=== PATIENT | male | born 1945 | race Caucasian/White ===

== ENCOUNTER → 2017-03-20 | Outpatient (CLI) | payer OTHER, MEDICAID ==
[2016-12-15 11:53] VITALS: BP 119/74
[2017-03-20 09:02] LABS: BLOOD UREA NITROGEN 21 mg/dL (7-18); CALCIUM 8.6 mg/dL (8.5-10.1); CARBON DIOXIDE 28.7 mmol/L (21-32); CHLORIDE 108 mmol/L (98-107); CHOL/HDL RATIO 2.5 (0.0-5.0); CHOLESTEROL 161 mg/dL (0-200); CREATININE 1.11 mg/dL (0.70-1.30); FREE T4 (FREE THYROXINE) 1.06 ng/dL (0.76-1.46); GLUCOSE 110 mg/dL (65-99); HDL CHOLESTEROL 64 mg/dL (40-60); SODIUM 145 mmol/L (136-145); TRIGLYCERIDES 78 mg/dL (0-150); TSH (3RD GENERATION) 7.211 uIU/mL (0.358-3.74); eGFR BLACK RACES > 60 (>60); eGFR NON BLACK RACES > 60 (>60)
[2017-03-20 09:10] LABS: BASOPHILS % (AUTO) 0.6 % (0.2-1.0); EOSINOPHILS # (AUTO) 0.1 x10^3/uL (0.0-0.2); EOSINOPHILS % (AUTO) 1.8 % (0.9-2.9); HEMATOCRIT 40.8 % (42.0-54.0); HEMOGLOBIN 13.5 g/dL (13.5-18.0); LYMPHOCYTES # (AUTO) 1.7 X10^3/uL (1.3-2.9); LYMPHOCYTES % (AUTO) 31.3 % (21.0-51.0); MEAN CORPUSCULAR HEMOGLOBIN 30.1 pg (27.0-34.0); MEAN CORPUSCULAR HGB CONC 33.2 g/dL (33.0-35.0); MEAN CORPUSCULAR VOLUME 90.6 fL (80.0-100.0); MEAN PLATELET VOLUME 7.5 fL (7.4-11.0); MONOCYTES # (AUTO) 0.6 x10^3/uL (0.3-0.8); MONOCYTES % (AUTO) 10.7 % (0.0-13.0); NEUTROPHILS # (AUTO) 2.9 x10^3/uL (2.2-4.8); NEUTROPHILS % (AUTO) 55.6 % (42.0-75.0); PLATELET COUNT 207 X10^3/uL (150.0-450.0); RED BLOOD COUNT 4.51 X10^6/uL (4.7-6.0); RED CELL DISTRIBUTION WIDTH 14.1 % (11.6-16.5); WHITE BLOOD COUNT 5.3 X10^3/uL (3.6-10.0)
[2017-03-20 14:33] LABS: ALBUMIN 3.8 g/dL (3.4-5.0); BILIRUBIN,DIRECT 0.12 mg/dL (0-0.2); TOTAL PROTEIN 7.2 g/dL (6.4-8.2)
== END ==
LOC: LAB 08:08
PROVIDERS: ATTEND Internal Medicine Clinical Cardiac Electrophysiology
DX: I42.8 Other cardiomyopathies (principal); Z51.81 Encounter for therapeutic drug level monitoring; I10 Essential (primary) hypertension; E78.2 Mixed hyperlipidemia
CPT/HCPCS: 36415; 80048; 80061; 80076; 84439; 84443; 85025

== ENCOUNTER 2017-11-04 13:52 | Emergency (ER) | payer OTHER, MEDICAID ==
[2017-11-04 14:10] VITALS: BMI 44.1
[2017-11-04] MEDS ORDERED: ZOFRAN INJ 4 MG VIAL IM ONE (14:38)
--- NOTE | 2017-11-04 14:38 | DR.DIZZY ---
HPI - Time seen Time seen: 14:35 - PCP Primary Care Physician: KIRSTIE CHAUDHARY - HPI Comment HPI Comment: HISTORY BELOW. - Complaint Chief Complaint Doctor Comments: ATAXIA, DIZZINESS AND IMBALANCE WITH NAUSEA TIMES 8 DAYS. TAKING ANTIVERT WITHOUT RELIEF. FELL FEW DAYS AGO. HURTING IN LOWER RIGHT RIB. 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 HAVE VERTIGO FOR FEW YEARS NOW. ALSO DEAF IN RIGHT EAR. Chief Complaint:: PT TO THE ER WITH HIS DAUGHTER AND HE STATES HE HAS BEEN SICK , WEAK, DIZZY, AND NAUSEATED AND HE THOUGHT THIS WOULD GET BETTER. ". Self Treatment fo Chief Complaint: ANTIVERT - Nurses Notes Reviewed Nurses Notes Review: Yes - Source History Provided: Patient, Family Member - Mode of Arrival Mode of Arrival: Wheelchair - Timing Onset of Chief Complaint: 10/28/17 Came on: Suddenly - Duration Duration: Constant Duration: Days - Location of Weakness Weakness Location: Generalized - Context Onset: At rest, With light exertion Stroke Symptoms: Ataxia, Dizziness - Severity Severity: Abnormal activity level - Modifying factors Worsens: Change in Position, Turning Head - Associated signs and symptoms Associated Signs and Symptoms: Near Syncope, Vertigo, Imbalance, Weak PMH - PMH Past Medical History: Yes Past Medical History: Anxiety, CHF, Coronary Artery Disease, Diabetes, Dyslipidemia, GERD, Hypertension, Kidney Stones Past Surgical History: Yes Surgical History: Joint Replacement, Ortho Surgery, Lithotripsy - Family History History of Family Medical Conditions: Yes Family Medical History: Diabetes Mellitus, Cancer, Heart Failure, Sudden Cardiac , Hypertension - Social History Does patient currently use any type of tobacco product: No Have you used tobacco products in the last 12 months: No Type of Tobacco Use: None Does any household member use tobacco: No Alcohol Use: None Do you use any recreational Drugs:: No Lives With: Alone Lives Where: Home - infectious screening In the last 2 months have you had wt loss of >10#?: NO Have you had fever, night sweats or hemotysis?: No Have you traveled outside the country in the last 6 months?: No Isolation: Standard ROS - Review of Systems Constitutional: Weakness. negative: Chills, Fever Eyes: negative: Eye Pain, Discharge ENTM: negative: Ear Pain, Nose Discharge, Nose Congestion, Throat Pain Respiratoy: negative: Productive Cough, Short of Breath, Wheezing, Hemoptysis Cardiovascular: Edema. negative: Chest Pain, Syncope (NEAR SYNCOPE/VERTIGO) Gastrointestinal/Abdominal: negative: Abdominal Pain, Constipation, Diarrhea, Nausea, Vomiting Genitourinary: negative: Dysuria, Hematuria Neurological: Headache, Weakness, Dizziness, Problems Walking, Other (ATAXIA, VERTIGO) Musculoskeletal: Back Pain, Rib(s) (RT RIB PAIN) Integumentary: Change in Color, Rash (STASIS DERMATITIS) Hematologic/Lymphatic: No Symptoms Reported Endocrine: No Symptoms Reported All Other Systems: Reviewed and Negative PE - Vital Signs Vitals: Temperature 97.4 F Pulse Rate [Left Brachial] 73 Pulse Rate 72 Respiratory Rate 16 Blood Pressure [Left Arm] 129/74 Blood Pressure [Right Arm] 106/55 Blood Pressure 181/103 O2 Sat by Pulse Oximetry 99 - General Limitations: No Limitations General Appearance: Alert - Head Head Exam: Normal Inspection - Eyes Eye exam: Normal Appearance Pupils: Regular, Round: Bilateral, Reactive: Bilateral Sclera/Conjunctival: Normal Inspection: Bilateral - ENT ENT Exam: Normal External Ear Exam, TM's Normal Bilaterally - Neck Neck Exam: Trachea Midline - Chest Chest Inspection: Symmetric Chest Wall Rise - Respiratory Respiratory Exam: Chest Wall Tenderness (RT RIB TENERNESS RT LOWER LATERAL ASPECT.), Respiratory Distress (ON EXERTION) Respiratory Exam: Bilateral Wheezing, Bilateral Rhonchi, Upper Rhonchi, Lower Wheezing, Lower Rhonchi - Cardiovascular Cardiovascular Exam: Regular Rate, Normal Rhythm, Normal Heart Sounds - Abdominal Exam Abdominal Exam: Normal Bowel Sounds, Soft. negative: Tenderness - Rectal Rectal Exam: Deferred - Extremeties Extremities Exam: Normal Inspection - Back Back Exam: Paraspinal Tenderness - Neurologic Neurological Exam: Alert, Oriented X3, Other (ATAXIA) Speech: Fluid Speech Cranial Nerve Exam: EOM Function (II, III, IV, ): Normal, Facial Sensation (V) : Normal, Facial Palsy (VII): Normal, Gag reflex (XI): Normal, Tongue Deviation : Normal Cerebellar Function: Ataxic Gait Upper Motor Neuron Exam: Babinski Sign: Normal - Psychiatric Psychiatric Exam: Normal Affect, Normal Mood - Skin Skin Exam: Erythema MDM - Additional Information Additional Information Obtained From: Family - Differential Diagnosis Differential Diagnosis: CVA, Dehydration, Dysrhythmia, Electrolyte disorder, Hypoglycemia, Labyrinthitis, Meniere's disease, Myocardial Infarction, Vertigo- central Course - Treatment Treatment: SEE ORDERS - Education/Counseling Education/Counseling: Patient, Family, Education Educated On: Diagnosis, Needs for Follow Up ROR - Labs Reviewed Laboratory Results Reviewed?: Yes Result Diagrams: 11/04/17 14:52 11/04/17 14:52 Laboratory: WBC 6.3 X10^3/uL (3.6-10.0) 11/04/17 14:52 RBC 4.30 X10^6/uL (4.7-6.0) L 11/04/17 14:52 Hgb 13.5 g/dL (13.5-18.0) 11/04/17 14:52 Hct 39.3 % (42.0-54.0) L 11/04/17 14:52 MCV 91.5 fL (80.0-100.0) 11/04/17 14:52 MCH 31.3 pg (27.0-34.0) 11/04/17 14:52 MCHC 34.2 g/dL (33.0-35.0) 11/04/17 14:52 RDW 13.7 % (11.6-16.5) 11/04/17 14:52 Plt Count 218 X10^3/uL (150.0-450.0) 11/04/17 14:52 MPV 7.3 fL (7.4-11.0) L 11/04/17 14:52 Neut % 66.6 % (42.0-75.0) 11/04/17 14:52 Lymph % 22.8 % (21.0-51.0) 11/04/17 14:52 [place] % 8.0 % (0.0-13.0) 11/04/17 14:52 Eos % 1.5 % (0.9-2.9) 11/04/17 14:52 Baso % 1.1 % (0.2-1.0) H 11/04/17 14:52 Neut # 4.2 x10^3/uL (2.2-4.8) 11/04/17 14:52 Lymph # 1.4 X10^3/uL (1.3-2.9) 11/04/17 14:52 [place] # 0.5 x10^3/uL (0.3-0.8) 11/04/17 14:52 Eos # 0.1 x10^3/uL (0.0-0.2) 11/04/17 14:52 Baso # 0.1 X10^3/uL (0.0-0.1) 11/04/17 14:52 Absolute Nucleated RBC 0.1 /100WBC 11/04/17 14:52 Sodium 140 mmol/L (136-145) 11/04/17 14:52 Corrected Sodium TNP 11/04/17 14:52 Potassium 4.2 mmol/L (3.5-5.1) 11/04/17 14:52 Chloride 104 mmol/L (98-107) 11/04/17 14:52 Carbon Dioxide 27.4 mmol/L (21-32) 11/04/17 14:52 BUN 21 mg/dL (7-18) H 11/04/17 14:52 Creatinine 1.37 mg/dL (0.70-1.30) H 11/04/17 14:52 Est GFR (MDRD) Af Amer > 60 (>60) 11/04/17 14:52 Est GFR (MDRD) Non-Af 54 (>60) L 11/04/17 14:52 Glucose 102 mg/dL (65-99) H 11/04/17 14:52 Calcium 9.2 mg/dL (8.5-10.1) 11/04/17 14:52 Corrected Calcium TNP 11/04/17 14:52 Total Bilirubin 0.60 mg/dL (0.2-1.0) 11/04/17 14:52 AST 18 Units/L (15-37) 11/04/17 14:52 ALT 27 Units/L (12-78) 11/04/17 14:52 Alkaline Phosphatase 60 Units/L (46-116) 11/04/17 14:52 Creatine Kinase 64 Units/L (39-308) 11/04/17 14:52 CK-MB (CK-2) 1.3 ng/mL (0-4.0) 11/04/17 14:52 CK/CKMB % Calc 2.0 % (<4) 11/04/17 14:52 Troponin I < 0.02 ng/mL (0-1.5) 11/04/17 14:52 Total Protein 7.4 g/dL (6.4-8.2) 11/04/17 14:52 Albumin 4.0 g/dL (3.4-5.0) 11/04/17 14:52 Globulin 3.4 g/dL (2.5-4.5) 11/04/17 14:52 Albumin/Globulin Ratio 1.2 Ratio (1.1-2.1) 11/04/17 14:52 - XRAY XRAY Interpreted by: Radiologist XRAY Findings: REPORT DISCUSS WITH GREGG BELTRAN. - EKG Rhythm: NSR (EKG NOTED) Block: LBBB - Diagnosis Discharge Problem: Vertigo, Dizziness Contusion of rib on left side Qualifiers: Encounter type: initial encounter Qualified Code(s): S20.212A - Contusion of left front wall of thorax, initial encounter - Discharge Plan Disposition: 01 HOME, SELF-CARE Condition: Stable Prescriptions: Ondansetron [Zofran ODT 8 mg] 8 mg PO Q8H PRN #15 tab PRN Reason: Nausea/Vomiting - Follow ups/Referrals Follow ups/Referrals: Nolberto Farrell [Primary Care Provider] - 2 days - Instructions Instructions: Vertigo, [id number], Rib Contusion, Dizziness, [id number] Additional Instructions: RETURN TO ED IF WORSE.
[2017-11-04] MEDS ORDERED: ZOFRAN INJ 4 MG VIAL ONE (14:47)
[2017-11-04 15:00] LABS: BASOPHILS # (AUTO) 0.1 X10^3/uL (0.0-0.1); BASOPHILS % (AUTO) 1.1 % (0.2-1.0); EOSINOPHILS # (AUTO) 0.1 x10^3/uL (0.0-0.2); EOSINOPHILS % (AUTO) 1.5 % (0.9-2.9); HEMATOCRIT 39.3 % (42.0-54.0); HEMOGLOBIN 13.5 g/dL (13.5-18.0); LYMPHOCYTES # (AUTO) 1.4 X10^3/uL (1.3-2.9); LYMPHOCYTES % (AUTO) 22.8 % (21.0-51.0); MEAN CORPUSCULAR HEMOGLOBIN 31.3 pg (27.0-34.0); MEAN CORPUSCULAR HGB CONC 34.2 g/dL (33.0-35.0); MEAN CORPUSCULAR VOLUME 91.5 fL (80.0-100.0); MEAN PLATELET VOLUME 7.3 fL (7.4-11.0); MONOCYTES # (AUTO) 0.5 x10^3/uL (0.3-0.8); NEUTROPHILS # (AUTO) 4.2 x10^3/uL (2.2-4.8); NEUTROPHILS % (AUTO) 66.6 % (42.0-75.0); PLATELET COUNT 218 X10^3/uL (150.0-450.0); RED CELL DISTRIBUTION WIDTH 13.7 % (11.6-16.5); WHITE BLOOD COUNT 6.3 X10^3/uL (3.6-10.0)
[2017-11-04 15:17] LABS: BLOOD UREA NITROGEN 21 mg/dL (7-18); CALCIUM 9.2 mg/dL (8.5-10.1); CARBON DIOXIDE 27.4 mmol/L (21-32); CHLORIDE 104 mmol/L (98-107); CREATININE 1.37 mg/dL (0.70-1.30); SODIUM 140 mmol/L (136-145); TROPONIN I < 0.02 ng/mL (0-1.5); eGFR BLACK RACES > 60 (>60); eGFR NON BLACK RACES 54 (>60)
[2017-11-04 15:21] LABS: ALANINE AMINOTRANSFERASE 27 Units/L (12-78); ALKALINE PHOSPHATASE 60 Units/L (46-116); ASPARTATE AMINO TRANSFERASE 18 Units/L (15-37); CREATINE KINASE 64 Units/L (39-308); CREATINE KINASE MB 1.3 ng/mL (0-4.0); TOTAL PROTEIN 7.4 g/dL (6.4-8.2)
--- NOTE | 2017-11-04 16:08 | CT ---
Indication: Mental status changes. Exam: CT head without contrast. Technique: Routine transaxial images were obtained through the brain without contrast. Comparison: 06/15/2016. Findings: The ventricles are normal. There is mild periventricular low density bilaterally. No intrac ranial hemorrhage or edema is seen. There is no extra-axial fluid collection or mass. The bones are i ntact. There is moderate calcified plaque in the intracranial vessels. The midline structures are unr emarkable. Impression: Mild atrophy and mild chronic microischemic changes scattered in the deep white matter wi th no acute intracranial abnormality. Reported By:
[2017-11-04 16:55] VITALS: BP 106/55
--- NOTE | 2017-11-04 16:56 | RAD ---
HISTORY: Right rib pain and dizziness. Study: Four views of the ribs. Comparison: Chest x-ray dated December 15, 2016. Findings: The trachea is midline. The cardiac silhouette is mildly enlarged but unchanged. Stable appearance o f a multi lead left chest cardiac pacemaker. No obvious focal consolidation, pleural effusion, or pn eumothorax.. The bony thorax appears intact. IMPRESSION: 1. No acute cardiopulmonary disease. 2. No acute osseous abnormality. Reported By:
== END 2017-11-04 17:34 | disposition home or self-care (01) ==
LOC: ER 14:04
DX: S20.212A Contusion of left front wall of thorax, initial encounter (principal); R42 Dizziness and giddiness; W19.XXXA Unspecified fall, initial encounter; Y92.9 Unspecified place or not applicable
CPT/HCPCS: 36415; 70450; 71111; 80053; 82550; 82553; 84484; 85025; 93005; 93010; 96372; 99283; 99285; J2405

== ENCOUNTER → 2018-04-10 | Outpatient (CLI) | payer OTHER, MEDICAID ==
[2018-04-10 08:11] LABS: BASOPHILS % (AUTO) 0 % (0.2-1.0); EOSINOPHILS # (AUTO) 0.2 x10^3/uL (0.0-0.2); EOSINOPHILS % (AUTO) 2.9 % (0.9-2.9); HEMATOCRIT 39.2 % (42.0-54.0); HEMOGLOBIN 13.4 g/dL (13.5-18.0); LYMPHOCYTES # (AUTO) 2.1 X10^3/uL (1.3-2.9); LYMPHOCYTES % (AUTO) 35.3 % (21.0-51.0); MEAN CORPUSCULAR HEMOGLOBIN 31.7 pg (27.0-34.0); MEAN CORPUSCULAR HGB CONC 34.2 g/dL (33.0-35.0); MEAN CORPUSCULAR VOLUME 92.8 fL (80.0-100.0); MEAN PLATELET VOLUME 7.2 fL (7.4-11.0); MONOCYTES # (AUTO) 1.5 x10^3/uL (0.3-0.8); NEUTROPHILS # (AUTO) 2.2 x10^3/uL (2.2-4.8); NEUTROPHILS % (AUTO) 36.8 % (42.0-75.0); PLATELET COUNT 207 X10^3/uL (150.0-450.0); RED BLOOD COUNT 4.22 X10^6/uL (4.7-6.0); RED CELL DISTRIBUTION WIDTH 13.5 % (11.6-16.5); WHITE BLOOD COUNT 5.9 X10^3/uL (3.6-10.0)
[2018-04-10 08:19] LABS: PLATELET MORPHOLOGY COMMENT NORMAL (NORMAL)
[2018-04-10 08:33] LABS: ALANINE AMINOTRANSFERASE 22 Units/L (12-78); ALBUMIN 3.7 g/dL (3.4-5.0); ALKALINE PHOSPHATASE 48 Units/L (46-116); ASPARTATE AMINO TRANSFERASE 12 Units/L (15-37); BLOOD UREA NITROGEN 24 mg/dL (7-18); CARBON DIOXIDE 28.5 mmol/L (21-32); CHLORIDE 106 mmol/L (98-107); CHOL/HDL RATIO 2.4 (0.0-5.0); CHOLESTEROL 146 mg/dL (0-200); COR NA(FOR HYPERGLY) 142 mmol/L (136-145); CREATININE 1.44 mg/dL (0.70-1.30); FREE T4 (FREE THYROXINE) 0.89 ng/dL (0.76-1.46); HDL CHOLESTEROL 60 mg/dL (40-60); SODIUM 142 mmol/L (136-145); TOTAL PROTEIN 7.2 g/dL (6.4-8.2); TRIGLYCERIDES 78 mg/dL (0-150); TSH (3RD GENERATION) 6.784 uIU/mL (0.358-3.74); eGFR BLACK RACES > 60 (>60); eGFR NON BLACK RACES 51 (>60)
== END ==
LOC: LAB 07:44
PROVIDERS: ATTEND Internal Medicine
DX: I42.9 Cardiomyopathy, unspecified (principal); Z51.81 Encounter for therapeutic drug level monitoring
CPT/HCPCS: 36415; 80053; 80061; 84439; 84443; 85025

== ENCOUNTER 2019-07-13 14:55 | Inpatient (IN) ==
[2019-07-13] MEDS ORDERED: ZOFRAN INJ 4 MG VIAL IVP PRN (15:15)
[2019-07-13] MEDS ORDERED: PHARMACY CONSULT - VANCOMYCIN XX SCH (16:00)
[2019-07-13] MEDS ORDERED: PHARMACY CONSULT - DOSE _____ XX SCH (16:00)
[2019-07-13 16:57] LABS: BASOPHILS % (AUTO) 0.3 % (0.2-1.0); HEMATOCRIT 33.3 % (42.0-54.0); HEMOGLOBIN 11.3 g/dL (13.5-18.0); LYMPHOCYTES # (AUTO) 0.9 X10^3/uL (1.3-2.9); LYMPHOCYTES % (AUTO) 7.4 % (21.0-51.0); MEAN CORPUSCULAR HEMOGLOBIN 31.8 pg (27.0-34.0); MEAN CORPUSCULAR VOLUME 93.3 fL (80.0-100.0); MEAN PLATELET VOLUME 6.4 fL (7.4-11.0); MONOCYTES # (AUTO) 0.8 x10^3/uL (0.3-0.8); MONOCYTES % (AUTO) 6.7 % (0.0-13.0); NEUTROPHILS # (AUTO) 10.8 x10^3/uL (2.2-4.8); NEUTROPHILS % (AUTO) 85.6 % (42.0-75.0); PLATELET COUNT 194 X10^3/uL (150.0-450.0); RED BLOOD COUNT 3.56 X10^6/uL (4.7-6.0); RED CELL DISTRIBUTION WIDTH 13.9 % (11.6-16.5); WHITE BLOOD COUNT 12.6 X10^3/uL (3.6-10.0)
[2019-07-13 17:10] LABS: ALANINE AMINOTRANSFERASE 11 Units/L (12-78); ALBUMIN 3.2 g/dL (3.4-5.0); ALKALINE PHOSPHATASE 43 Units/L (46-116); ASPARTATE AMINO TRANSFERASE 13 Units/L (15-37); BLOOD UREA NITROGEN 35 mg/dL (7-18); CALCIUM 8.7 mg/dL (8.5-10.1); CARBON DIOXIDE 28.6 mmol/L (21-32); CHLORIDE 102 mmol/L (98-107); COR CA(FOR HYPOALB) 9.3 mg/dL (8.5-10.1); CREATININE 2.05 mg/dL (0.70-1.30); SODIUM 138 mmol/L (136-145); eGFR NON BLACK RACES 34 (>60)
--- NOTE | 2019-07-13 17:24 | VAS ---
Exam: Left lower extremity venous ultrasound History: 74-year-old male left leg swelling Comparison: None Findings: Ultrasound evaluation of the deep venous system of the left leg was performed from the level of the inguinal ligament down to the calf. Deep system is widely patent with good flow and compressibility seen along its course. No evidence of intraluminal thrombus. Impression: No deep vein thrombosis is identified in the left lower extremity Reported By:
[2019-07-13] MEDS ORDERED: ZOFRAN INJ 4 MG VIAL ONE (18:06)
[2019-07-13] MEDS: ZOFRAN INJ 4 MG VIAL IVP PRN (18:10)
--- NOTE | 2019-07-13 18:16 | RAD ---
HISTORY: Shortness of breath Study: Two views of the chest Comparison: November 04, 2017 Findings: The trachea is midline. The cardiac silhouette is enlarged. The lungs are clear without focal infiltrate or effusion. A left-sided cardiac pacemaker is demonstrated. Elevation of the left hemidiaphragm is again noted similar to prior exam. IMPRESSION: 1. Cardiomegaly. Reported By:
[2019-07-13] MEDS ORDERED: NS 1000 ML 1,000 ML ONE (21:31)
[2019-07-13] MEDS: ZOSYN VIAL 3.375 GRAMS 3.375 G in NS 100 ML IV + SPIKE MINIBAG* 100 ML IV SCH (21:55)
[2019-07-13 23:15] VITALS: BMI 45.6
[2019-07-14] MEDS ORDERED: NS 250 ML IV 250 ML ONE ×2 (03:36→07:49)
[2019-07-14] MEDS ORDERED: VANCOMYCIN HCL 1 GM VIAL ONE ×2 (03:36→07:50)
[2019-07-14] MEDS ORDERED: VANCOMYCIN HCL 500 MG VIAL ONE ×2 (03:36→07:50)
[2019-07-14] MEDS: VANCOMYCIN HCL 500 MG VIAL 250 MG, VANCOMYCIN HCL 1 GM VIAL 1 G in D5W 250 ML IV 250 ML IV SCH ×2 (03:57→08:00)
[2019-07-14 05:45] LABS: BASOPHILS % (AUTO) 0.3 % (0.2-1.0); EOSINOPHILS % (AUTO) 0.4 % (0.9-2.9); HEMATOCRIT 33.8 % (42.0-54.0); HEMOGLOBIN 11.4 g/dL (13.5-18.0); LYMPHOCYTES # (AUTO) 1.2 X10^3/uL (1.3-2.9); LYMPHOCYTES % (AUTO) 11.3 % (21.0-51.0); MEAN CORPUSCULAR HEMOGLOBIN 32.2 pg (27.0-34.0); MEAN CORPUSCULAR HGB CONC 33.8 g/dL (33.0-35.0); MEAN CORPUSCULAR VOLUME 95.1 fL (80.0-100.0); MEAN PLATELET VOLUME 7.5 fL (7.4-11.0); MONOCYTES % (AUTO) 9.2 % (0.0-13.0); NEUTROPHILS # (AUTO) 8.6 x10^3/uL (2.2-4.8); NEUTROPHILS % (AUTO) 78.8 % (42.0-75.0); PLATELET COUNT 178 X10^3/uL (150.0-450.0); RED BLOOD COUNT 3.56 X10^6/uL (4.7-6.0); WHITE BLOOD COUNT 10.9 X10^3/uL (3.6-10.0)
[2019-07-14 05:56] LABS: ALANINE AMINOTRANSFERASE 16 Units/L (12-78); ALKALINE PHOSPHATASE 42 Units/L (46-116); ASPARTATE AMINO TRANSFERASE 17 Units/L (15-37); BLOOD UREA NITROGEN 38 mg/dL (7-18); CALCIUM 8.5 mg/dL (8.5-10.1); CARBON DIOXIDE 28.3 mmol/L (21-32); CHLORIDE 103 mmol/L (98-107); COR CA(FOR HYPOALB) 9.3 mg/dL (8.5-10.1); CREATININE 2.32 mg/dL (0.70-1.30); SODIUM 139 mmol/L (136-145); TOTAL PROTEIN 6.8 g/dL (6.4-8.2); eGFR NON BLACK RACES 29 (>60)
[2019-07-14] MEDS: ZOSYN VIAL 3.375 GRAMS 3.375 G in NS 100 ML IV + SPIKE MINIBAG* 100 ML IV SCH ×2 (06:09→21:16)
[2019-07-14] MEDS ORDERED: XANAX PO PRN (08:13)
[2019-07-14] MEDS ORDERED: ACTIGALL PO SCH (09:00)
[2019-07-14] MEDS: VANCOMYCIN HCL 1 GM VIAL 1 G in D5W 250 ML IV 250 ML IV SCH ×2 (09:29→20:34)
[2019-07-14] MEDS: MEXILETINE PO SCH ×2 (09:32→15:52)
[2019-07-14] MEDS: PYRIDOSTIGMINE BROMIDE 60 MG PO SCH ×3 (09:32→21:10)
[2019-07-14] MEDS: ALLEGRA PO SCH (09:33)
[2019-07-14] MEDS: HEMOCYTE-PLUS PO SCH (09:34)
[2019-07-14] MEDS: CORDARONE TAB 200 MG PO SCH (09:34)
[2019-07-14] MEDS: ELIQUIS PO SCH ×2 (09:34→20:01)
[2019-07-14] MEDS: SYNTHROID 50 mcg TAB PO SCH (09:35)
[2019-07-14] MEDS: PriLOSEC PO SCH (09:35)
--- NOTE | 2019-07-14 12:58 | DR.UPDATE ---
H&P Update History and Physical Update: History and Physical reviewed and patient examined. Changes noted: Yes with the following: PRESENTED TO THE OFFICE TODAY WITH COMPLAINTS OF LEFT LOWER EXTREMITY REDNESS, SWELLING, WEEPING, AND PAIN. 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 SYMPTOMS HAVE PROGRESSIVELY GOTTEN WORSE. HE REPORTS FEVER AND CHILLS THE PAST SEVERAL DAYS. ON EXAMINATION, THERE IS ERYTHEMA AND 2+ NON-PITTING EDEMA TO THE LEFT LOWER EXTREMITY AND A SMALL WOUND MEASURING 4X2CM THAT IS NOTED WITH YELLOW SLOUGH. WE ADMITTED PATIENT FOR FURTHER EVALUATION AND TREATMENT OF LEFT LOWER EXTREMITY CELLULITIS. ON ADMISSION, WE WILL START IV VANCOMYCIN AND IV FORTAZ. WE WILL OBTAIN LABS, BLOOD CULTURES, AND A LLE VENOUS DOPPLER. OTHERWISE, WE PLAN TO FOLLOW UP WITH AM LABS AND CONTINUE TO MONITOR.
[2019-07-14] MEDS: ULTRAM PO PRN ×2 (13:00→19:29)
[2019-07-14] MEDS ORDERED: NORCO 5/325 MG TAB ONE (16:56)
[2019-07-14] MEDS: ZOFRAN INJ 4 MG VIAL IVP PRN (17:02)
[2019-07-14] MEDS: FLOMAX PO SCH (20:01)
[2019-07-14] MEDS: PATIENT'S HOME MEDICATION PO SCH (20:01)
[2019-07-14] MEDS: SINGULAIR TAB 10 MG PO SCH (20:02)
[2019-07-14] MEDS: ZOCOR TAB 20 MG PO SCH (20:02)
--- NOTE | 2019-07-14 20:12 | PCM.PROG ---
Progress Note - Progress Note for Day of Date of Exam: 07/14/19 - Subjective Subjective: IS BEING TREATED FOR LEFT LOWER EXTREMITY CELLULITIS. TODAY, HE IS ALERT AND ORIENTED, LYING IN BED ON MORNING ROUNDS. HE CONTINUES WITH REDNESS AND SWELLING TO LEFT LOWER EXTREMITY. HE ALSO REPORTS SHORTNESS OF BREATH. ON EXAMINATION, HEART IS REGULAR IN RATE AND RHYTHM. BILATERAL LUNGS ARE NOTED WITH DIMINISHED LUNG SOUNDS THROUGHOUT. ABDOMEN IS ROUND, SOFT, AND NON- TENDER WITH NORMAL BOWEL SOUNDS NOTED IN ALL QUADRANTS. LEFT LOWER EXTREMITY IS NOTED WITH ERYTHEMA AND EDEMA. THERE IS YELLOW SLOUGH NOTED TO WOUND ON THE LATERAL LEG. HIS VITALS THIS MORNING ARE: 98.1-69-18-98%-108/56. LABS WERE OBTAINED. ABNORMAL LAB VALUES INCLUDE THE FOLLOWING: WBC 10.9, RBC 3.56, HGB 11.4, HCT 33.8, BUN 38, CREATININE 2.32, GLUCOSE 108, ALK PHOS 42, CRP 201.90, ALBUMIN 3.0. BLOOD CULTURES ARE PENDING. A VENOUS DOPPLER WAS OBTAINED YESTERDAY AND IS NEGATIVE. HE IS CURRENTLY RECEIVING IV ZOSYN AND IV VANCOMYCIN. WE WILL CONTINUE WITH CURRENT PLAN OF CARE TODAY AND OBTAIN AN ECHOCARDIOGRAM. WE WILL RESUME HIS HOME MEDICATIONS. OTHERWISE, WE PLAN TO FOLLOW UP WITH AM LABS AND CONTINUE TO MONITOR. - Past Medical Family Social History Past Med/Fam/Surg Hx: No changes since H&P Allergies: Allergies No Known Drug Allergies Allergy (Verified 07/13/19 17:55) - Review of Systems ROS: No change since H&P - Vital Signs and I&O's Vital Signs: Temperature 98.1 F Pulse Rate [Left Radial] 66 Pulse Rate 69 Respiratory Rate 20 Blood Pressure [Left Arm] 129/74 Blood Pressure [Right Arm] 119/66 Blood Pressure 103/69 O2 Sat by Pulse Oximetry 98 Intake and Output: Intake & Output 07/12/19 07/13/19 07/14/19 07/15/19 11:59 11:59 11:59 11:59 Intake Total 875 / 875 1010 / 1010 Output Total 800 / 800 Balance 875 / 875 210 / 210 - Physical Exam Oriented: Normal Eyes: Normal Ear: Normal Nose: Normal Throat: Normal Respiratory: Generalized, Diminished Cardiovascular: Normal, Edema (LEFT LOWER EXTREMITY ). negative: S3, S4, Murmur : Normal Auscultation: Bowel Sounds: Normal Palpation: Normal Tenderness: Normal Skin: Red, Tender, Hot, Wound Musculoskeletal: Left, Leg, Swelling, Tender Psychiatric: Normal Mood Description: Calm Affect: Normal Speech Pattern: Clear, Appropriate - Laboratory and Diagnostics Result Diagrams: 07/14/19 04:16 07/14/19 04:16 Labs: Laboratory WBC 10.9 X10^3/uL (3.6-10.0) H 07/14/19 04:16 RBC 3.56 X10^6/uL (4.7-6.0) L 07/14/19 04:16 Hgb 11.4 g/dL (13.5-18.0) L 07/14/19 04:16 Hct 33.8 % (42.0-54.0) L 07/14/19 04:16 MCV 95.1 fL (80.0-100.0) 07/14/19 04:16 MCH 32.2 pg (27.0-34.0) 07/14/19 04:16 MCHC 33.8 g/dL (33.0-35.0) 07/14/19 04:16 RDW 14.0 % (11.6-16.5) 07/14/19 04:16 Plt Count 178 X10^3/uL (150.0-450.0) 07/14/19 04:16 MPV 7.5 fL (7.4-11.0) 07/14/19 04:16 Neut % (Auto) 78.8 % (42.0-75.0) H 07/14/19 04:16 Lymph % (Auto) 11.3 % (21.0-51.0) L 07/14/19 04:16 [place] % (Auto) 9.2 % (0.0-13.0) 07/14/19 04:16 Eos % (Auto) 0.4 % (0.9-2.9) L 07/14/19 04:16 Baso % (Auto) 0.3 % (0.2-1.0) 07/14/19 04:16 Neut # (Auto) 8.6 x10^3/uL (2.2-4.8) H 07/14/19 04:16 Lymph # (Auto) 1.2 X10^3/uL (1.3-2.9) L 07/14/19 04:16 [place] # (Auto) 1.0 x10^3/uL (0.3-0.8) H 07/14/19 04:16 Eos # (Auto) 0.0 x10^3/uL (0.0-0.2) 07/14/19 04:16 Baso # (Auto) 0.0 X10^3/uL (0.0-0.1) 07/14/19 04:16 Absolute Nucleated RBC 0.1 /100WBC 07/14/19 04:16 ESR 48 MM/HOUR (0-15) H 07/13/19 16:50 Sodium 139 mmol/L (136-145) 07/14/19 04:16 Corrected Sodium TNP 07/14/19 04:16 Potassium 4.5 mmol/L (3.5-5.1) 07/14/19 04:16 Chloride 103 mmol/L (98-107) 07/14/19 04:16 Carbon Dioxide 28.3 mmol/L (21-32) 07/14/19 04:16 BUN 38 mg/dL (7-18) H 07/14/19 04:16 Creatinine 2.32 mg/dL (0.70-1.30) H 07/14/19 04:16 Est GFR (MDRD) Af Amer 36 (>60) L 07/14/19 04:16 Est GFR (MDRD) Non-Af 29 (>60) L 07/14/19 04:16 Glucose 108 mg/dL (65-99) H 07/14/19 04:16 Calcium 8.5 mg/dL (8.5-10.1) 07/14/19 04:16 Corrected Calcium 9.3 mg/dL (8.5-10.1) 07/14/19 04:16 Total Bilirubin 0.60 mg/dL (0.2-1.0) 07/14/19 04:16 AST 17 Units/L (15-37) 07/14/19 04:16 ALT 16 Units/L (12-78) 07/14/19 04:16 Alkaline Phosphatase 42 Units/L (46-116) L 07/14/19 04:16 C-Reactive Protein 201.90 mg/L (0-3.0) H 07/14/19 04:16 Total Protein 6.8 g/dL (6.4-8.2) 07/14/19 04:16 Albumin 3.0 g/dL (3.4-5.0) L 07/14/19 04:16 Globulin 3.8 g/dL (2.5-4.5) 07/14/19 04:16 Albumin/Globulin Ratio 0.8 Ratio (1.1-2.1) L 07/14/19 04:16 - Plan (1) Cellulitis of left lower leg Status: Acute Plan: IV ZOSYN, IV LEVAQUIN, RESPIRATORY TREATMENTS, SUPPLEMENTAL OXYGEN, CONTINUE TO MONITOR
[2019-07-15] MEDS: MEXILETINE PO SCH ×3 (00:10→16:35)
[2019-07-15] MEDS: ULTRAM PO PRN (01:21)
[2019-07-15 05:06] LABS: BASOPHILS # (AUTO) 0.1 X10^3/uL (0.0-0.1); BASOPHILS % (AUTO) 0.6 % (0.2-1.0); EOSINOPHILS # (AUTO) 0.1 x10^3/uL (0.0-0.2); EOSINOPHILS % (AUTO) 0.8 % (0.9-2.9); HEMATOCRIT 33.2 % (42.0-54.0); HEMOGLOBIN 11.3 g/dL (13.5-18.0); LYMPHOCYTES % (AUTO) 10.6 % (21.0-51.0); MEAN CORPUSCULAR HEMOGLOBIN 32.4 pg (27.0-34.0); MEAN CORPUSCULAR HGB CONC 34.2 g/dL (33.0-35.0); MEAN CORPUSCULAR VOLUME 94.6 fL (80.0-100.0); MONOCYTES # (AUTO) 1.1 x10^3/uL (0.3-0.8); MONOCYTES % (AUTO) 11.2 % (0.0-13.0); NEUTROPHILS # (AUTO) 7.3 x10^3/uL (2.2-4.8); NEUTROPHILS % (AUTO) 76.8 % (42.0-75.0); PLATELET COUNT 184 X10^3/uL (150.0-450.0); RED CELL DISTRIBUTION WIDTH 13.8 % (11.6-16.5); WHITE BLOOD COUNT 9.5 X10^3/uL (3.6-10.0)
[2019-07-15 05:15] LABS: ALBUMIN 2.8 g/dL (3.4-5.0); CALCIUM 8.3 mg/dL (8.5-10.1); CARBON DIOXIDE 28.9 mmol/L (21-32); COR CA(FOR HYPOALB) 9.3 mg/dL (8.5-10.1); CREATININE 1.78 mg/dL (0.70-1.30); TOTAL PROTEIN 6.9 g/dL (6.4-8.2)
[2019-07-15] MEDS: PYRIDOSTIGMINE BROMIDE 60 MG PO SCH ×3 (05:33→21:27)
[2019-07-15] MEDS: SYNTHROID 50 mcg TAB PO SCH (06:03)
[2019-07-15] MEDS ORDERED: MILK OF MAGNESIA ONE (07:44)
[2019-07-15] MEDS ORDERED: COLACE CAP 100 MG PO ONE (07:44)
[2019-07-15] MEDS ORDERED: PHARMACY COMMENT IV NR (08:30)
[2019-07-15] MEDS: COLACE CAP 100 MG PO SCH ×2 (08:57→23:24)
[2019-07-15] MEDS: MILK OF MAGNESIA PO SCH ×2 (08:57→23:25)
[2019-07-15] MEDS: HEMOCYTE-PLUS PO SCH (09:02)
[2019-07-15] MEDS: ALLEGRA PO SCH (09:02)
[2019-07-15] MEDS: CORDARONE TAB 200 MG PO SCH (09:02)
[2019-07-15] MEDS: ELIQUIS PO SCH ×2 (09:02→21:23)
[2019-07-15] MEDS: PATIENT'S HOME MEDICATION PO SCH ×2 (09:02→21:25)
[2019-07-15] MEDS: ZOSYN VIAL 3.375 GRAMS 3.375 G in NS 100 ML IV + SPIKE MINIBAG* 100 ML IV SCH ×2 (09:03→22:00)
[2019-07-15] MEDS: PriLOSEC PO SCH (09:03)
[2019-07-15 09:09] LABS: CREATININE 1.61 mg/dL (0.70-1.30); VANCOMYCIN,TROUGH 14.1 ug/mL (15-20)
[2019-07-15] MEDS: VANCOMYCIN HCL 1 GM VIAL 1 G in D5W 250 ML IV 250 ML IV SCH ×2 (10:18→20:30)
[2019-07-15] MEDS ORDERED: MORPHINE SULFATE INJ 2 MG INJ IVP PRN (10:23)
[2019-07-15] MEDS: FLOMAX PO SCH (21:24)
[2019-07-15] MEDS: SINGULAIR TAB 10 MG PO SCH (21:25)
[2019-07-15] MEDS: ZOCOR TAB 20 MG PO SCH (21:26)
[2019-07-15] MEDS ORDERED: NS 500 ML IV 500 ML ONE (22:28)
[2019-07-16] MEDS: MEXILETINE PO SCH ×3 (00:34→17:31)
[2019-07-16] MEDS: SYNTHROID 50 mcg TAB PO SCH (05:00)
[2019-07-16] MEDS: PYRIDOSTIGMINE BROMIDE 60 MG PO SCH ×3 (05:09→21:34)
[2019-07-16 06:29] LABS: BASOPHILS % (AUTO) 0.4 % (0.2-1.0); EOSINOPHILS # (AUTO) 0.2 x10^3/uL (0.0-0.2); EOSINOPHILS % (AUTO) 2.2 % (0.9-2.9); HEMATOCRIT 30.8 % (42.0-54.0); HEMOGLOBIN 10.6 g/dL (13.5-18.0); LYMPHOCYTES # (AUTO) 1.3 X10^3/uL (1.3-2.9); LYMPHOCYTES % (AUTO) 18.8 % (21.0-51.0); MEAN CORPUSCULAR HEMOGLOBIN 32.2 pg (27.0-34.0); MEAN CORPUSCULAR HGB CONC 34.4 g/dL (33.0-35.0); MEAN CORPUSCULAR VOLUME 93.6 fL (80.0-100.0); MEAN PLATELET VOLUME 7.2 fL (7.4-11.0); MONOCYTES # (AUTO) 0.9 x10^3/uL (0.3-0.8); MONOCYTES % (AUTO) 13.5 % (0.0-13.0); NEUTROPHILS # (AUTO) 4.4 x10^3/uL (2.2-4.8); NEUTROPHILS % (AUTO) 65.1 % (42.0-75.0); PLATELET COUNT 205 X10^3/uL (150.0-450.0); RED BLOOD COUNT 3.29 X10^6/uL (4.7-6.0); RED CELL DISTRIBUTION WIDTH 13.4 % (11.6-16.5); WHITE BLOOD COUNT 6.8 X10^3/uL (3.6-10.0)
[2019-07-16 06:47] LABS: ALANINE AMINOTRANSFERASE 25 Units/L (12-78); ALBUMIN 2.6 g/dL (3.4-5.0); ALKALINE PHOSPHATASE 45 Units/L (46-116); ASPARTATE AMINO TRANSFERASE 45 Units/L (15-37); BLOOD UREA NITROGEN 29 mg/dL (7-18); CALCIUM 8.3 mg/dL (8.5-10.1); CARBON DIOXIDE 28.7 mmol/L (21-32); CHLORIDE 103 mmol/L (98-107); COR CA(FOR HYPOALB) 9.4 mg/dL (8.5-10.1); CREATININE 1.52 mg/dL (0.70-1.30); SODIUM 138 mmol/L (136-145); TOTAL PROTEIN 6.6 g/dL (6.4-8.2); eGFR NON BLACK RACES 48 (>60)
[2019-07-16] MEDS: PriLOSEC PO SCH (09:03)
[2019-07-16] MEDS: PATIENT'S HOME MEDICATION PO SCH ×2 (09:04→20:36)
[2019-07-16] MEDS: ELIQUIS PO SCH ×2 (09:05→20:35)
[2019-07-16] MEDS: ALLEGRA PO SCH (09:10)
[2019-07-16] MEDS: HEMOCYTE-PLUS PO SCH (09:10)
[2019-07-16] MEDS: CORDARONE TAB 200 MG PO SCH (09:11)
[2019-07-16] MEDS: MILK OF MAGNESIA PO SCH ×2 (09:12→20:36)
[2019-07-16] MEDS ORDERED: ALLEGRA ONE (09:18)
[2019-07-16] MEDS: VANCOMYCIN HCL 1 GM VIAL 1 G in D5W 250 ML IV 250 ML IV SCH ×2 (09:52→20:43)
[2019-07-16] MEDS ORDERED: DILAUDID INJ IVP PRN (09:53)
[2019-07-16] MEDS: ZOSYN VIAL 3.375 GRAMS 3.375 G in NS 100 ML IV + SPIKE MINIBAG* 100 ML IV SCH ×2 (11:10→21:31)
--- NOTE | 2019-07-16 19:23 | PCM.PROG ---
Progress Note - Progress Note for Day of Date of Exam: 07/15/19 - Subjective Subjective: IS BEING TREATED FOR LEFT LOWER EXTREMITY CELLULITIS. TODAY, HE IS ALERT AND ORIENTED, LYING IN BED ON MORNING ROUNDS. HE CONTINUES WITH REDNESS, SWELLING, AND PAIN TO LEFT LOWER EXTREMITY. HE ALSO REPORTS SHORTNESS OF BREATH. ON EXAMINATION, HEART IS REGULAR IN RATE AND RHYTHM. SEE ATERAL LUNGS ARE NOTED WITH DIMINISHED LUNG SOUNDS THROUGHOUT. ABDOMEN IS ROUND, SOFT, AND NON-TENDER WITH NORMAL BOWEL SOUNDS NOTED IN ALL QUADRANTS. LEFT LOWER EXTREMITY IS NOTED WITH ERYTHEMA AND EDEMA. HIS VITALS THIS MORNING ARE: 97.8-64-18-95%-132/70. LABS WERE OBTAINED. ABNORMAL LAB VALUES INCLUDE THE FOLLOWING: RBC 3.50, HGB 11.3, HCT 33.2, BUN 32, CREATININE 1.78, GLUCOSE 113, CALCIUM 8.3, AST 60, CRP 189.50, ALBUMIN 2.8. BLOOD CULTURES ARE PENDING. AN ECHO WAS OBTAINED AND REVEALED AN EJECTION FRACTION OF 47%. HE IS CURRENTLY RECEIVING IV ZOSYN AND IV VANCOMYCIN. WE WILL CONTINUE WITH CURRENT PLAN OF CARE TODAY AND START IV MORPHINE 2MG Q4H PRN PAIN. OTHERWISE, WE PLAN TO FOLLOW UP WITH AM LABS AND CONTINUE TO MONITOR. - Past Medical Family Social History Past Med/Fam/Surg Hx: No changes since H&P Allergies: Allergies No Known Drug Allergies Allergy (Verified 07/13/19 17:55) - Review of Systems ROS: No change since H&P - Vital Signs and I&O's Vital Signs: Temperature 97.8 F Pulse Rate [Left Radial] 66 Pulse Rate 70 Respiratory Rate 20 Blood Pressure [Left Arm] 129/74 Blood Pressure [Right Arm] 119/66 Blood Pressure 103/64 O2 Sat by Pulse Oximetry 94 Intake and Output: Intake & Output 07/14/19 07/15/19 07/16/19 07/17/19 11:59 11:59 11:59 11:59 Intake Total 875 / 875 2320 / 2320 2180 / 2180 700 / 700 Output Total 800 / 800 Balance 875 / 875 1520 / 1520 2180 / 2180 700 / 700 - Physical Exam Oriented: Normal Eyes: Normal Ear: Normal Nose: Normal Throat: Normal Respiratory: Generalized, Diminished Cardiovascular: Normal, Edema (LEFT LOWER EXTREMITY ). negative: S3, S4, Murmur : Normal Auscultation: Bowel Sounds: Normal Tenderness: Normal Skin: Red, Tender, Hot, Wound Musculoskeletal: Left, Leg, Swelling, Tender Psychiatric: Normal Mood Description: Calm Affect: Normal Speech Pattern: Clear, Appropriate - Laboratory and Diagnostics Result Diagrams: 07/16/19 05:23 07/16/19 05:23 Labs: 07/13/19 16:50 Blood Blood Culture - Preliminary 07/13/19 16:50 Blood Blood Culture - Preliminary Laboratory WBC 6.8 X10^3/uL (3.6-10.0) 07/16/19 05:23 RBC 3.29 X10^6/uL (4.7-6.0) L 07/16/19 05:23 Hgb 10.6 g/dL (13.5-18.0) L 07/16/19 05:23 Hct 30.8 % (42.0-54.0) L 07/16/19 05:23 MCV 93.6 fL (80.0-100.0) 07/16/19 05:23 MCH 32.2 pg (27.0-34.0) 07/16/19 05:23 MCHC 34.4 g/dL (33.0-35.0) 07/16/19 05:23 RDW 13.4 % (11.6-16.5) 07/16/19 05:23 Plt Count 205 X10^3/uL (150.0-450.0) 07/16/19 05:23 MPV 7.2 fL (7.4-11.0) L 07/16/19 05:23 Neut % (Auto) 65.1 % (42.0-75.0) 07/16/19 05:23 Lymph % (Auto) 18.8 % (21.0-51.0) L 07/16/19 05:23 [place] % (Auto) 13.5 % (0.0-13.0) H 07/16/19 05:23 Eos % (Auto) 2.2 % (0.9-2.9) 07/16/19 05:23 Baso % (Auto) 0.4 % (0.2-1.0) 07/16/19 05:23 Neut # (Auto) 4.4 x10^3/uL (2.2-4.8) 07/16/19 05:23 Lymph # (Auto) 1.3 X10^3/uL (1.3-2.9) 07/16/19 05:23 [place] # (Auto) 0.9 x10^3/uL (0.3-0.8) H 07/16/19 05:23 Eos # (Auto) 0.2 x10^3/uL (0.0-0.2) 07/16/19 05:23 Baso # (Auto) 0.0 X10^3/uL (0.0-0.1) 07/16/19 05:23 Absolute Nucleated RBC 0.1 /100WBC 07/16/19 05:23 ESR 48 MM/HOUR (0-15) H 07/13/19 16:50 Sodium 138 mmol/L (136-145) 07/16/19 05:23 Corrected Sodium TNP 07/16/19 05:23 Potassium 4.7 mmol/L (3.5-5.1) 07/16/19 05:23 Chloride 103 mmol/L (98-107) 07/16/19 05:23 Carbon Dioxide 28.7 mmol/L (21-32) 07/16/19 05:23 BUN 29 mg/dL (7-18) H 07/16/19 05:23 Creatinine 1.52 mg/dL (0.70-1.30) H 07/16/19 05:23 Est GFR (MDRD) Af Amer 58 (>60) L 07/16/19 05:23 Est GFR (MDRD) Non-Af 48 (>60) L 07/16/19 05:23 Glucose 108 mg/dL (65-99) H 07/16/19 05:23 Calcium 8.3 mg/dL (8.5-10.1) L 07/16/19 05:23 Corrected Calcium 9.4 mg/dL (8.5-10.1) 07/16/19 05:23 Total Bilirubin 0.50 mg/dL (0.2-1.0) 07/16/19 05:23 AST 45 Units/L (15-37) H 07/16/19 05:23 ALT 25 Units/L (12-78) 07/16/19 05:23 Alkaline Phosphatase 45 Units/L (46-116) L 07/16/19 05:23 C-Reactive Protein 156.20 mg/L (0-3.0) H 07/16/19 05:23 Total Protein 6.6 g/dL (6.4-8.2) 07/16/19 05:23 Albumin 2.6 g/dL (3.4-5.0) L 07/16/19 05:23 Globulin 4.0 g/dL (2.5-4.5) 07/16/19 05:23 Albumin/Globulin Ratio 0.7 Ratio (1.1-2.1) L 07/16/19 05:23 Vancomycin Trough 14.1 ug/mL (15-20) L 07/15/19 08:48 - Plan (1) Cellulitis of left lower leg Status: Acute Plan: IV ZOSYN, IV LEVAQUIN, RESPIRATORY TREATMENTS, SUPPLEMENTAL OXYGEN, CONTINUE TO MONITOR
[2019-07-16] MEDS: ULTRAM PO PRN (20:34)
[2019-07-16] MEDS: FLOMAX PO SCH (20:35)
[2019-07-16] MEDS: COLACE CAP 100 MG PO SCH (20:35)
[2019-07-16] MEDS: SINGULAIR TAB 10 MG PO SCH (20:36)
[2019-07-16] MEDS: ZOCOR TAB 20 MG PO SCH (20:36)
[2019-07-17] MEDS: MEXILETINE PO SCH ×4 (00:02→23:27)
[2019-07-17 05:28] LABS: ALANINE AMINOTRANSFERASE 26 Units/L (12-78); ALBUMIN 2.4 g/dL (3.4-5.0); ALKALINE PHOSPHATASE 43 Units/L (46-116); ASPARTATE AMINO TRANSFERASE 32 Units/L (15-37); BASOPHILS % (AUTO) 0.4 % (0.2-1.0); BLOOD UREA NITROGEN 26 mg/dL (7-18); CALCIUM 7.9 mg/dL (8.5-10.1); CHLORIDE 104 mmol/L (98-107); COR CA(FOR HYPOALB) 9.2 mg/dL (8.5-10.1); CREATININE 1.46 mg/dL (0.70-1.30); EOSINOPHILS # (AUTO) 0.2 x10^3/uL (0.0-0.2); EOSINOPHILS % (AUTO) 2.2 % (0.9-2.9); HEMATOCRIT 30.5 % (42.0-54.0); HEMOGLOBIN 10.4 g/dL (13.5-18.0); LYMPHOCYTES # (AUTO) 1.4 X10^3/uL (1.3-2.9); LYMPHOCYTES % (AUTO) 19.6 % (21.0-51.0); MEAN CORPUSCULAR HEMOGLOBIN 32.1 pg (27.0-34.0); MEAN CORPUSCULAR HGB CONC 34.1 g/dL (33.0-35.0); MEAN CORPUSCULAR VOLUME 93.9 fL (80.0-100.0); MEAN PLATELET VOLUME 7.1 fL (7.4-11.0); MONOCYTES # (AUTO) 0.9 x10^3/uL (0.3-0.8); MONOCYTES % (AUTO) 12.3 % (0.0-13.0); NEUTROPHILS # (AUTO) 4.7 x10^3/uL (2.2-4.8); NEUTROPHILS % (AUTO) 65.5 % (42.0-75.0); PLATELET COUNT 213 X10^3/uL (150.0-450.0); RED BLOOD COUNT 3.25 X10^6/uL (4.7-6.0); RED CELL DISTRIBUTION WIDTH 13.6 % (11.6-16.5); SODIUM 141 mmol/L (136-145); TOTAL PROTEIN 6.3 g/dL (6.4-8.2); WHITE BLOOD COUNT 7.2 X10^3/uL (3.6-10.0); eGFR NON BLACK RACES 50 (>60)
[2019-07-17] MEDS: PYRIDOSTIGMINE BROMIDE 60 MG PO SCH ×3 (05:58→21:15)
[2019-07-17] MEDS: SYNTHROID 50 mcg TAB PO SCH (06:00)
[2019-07-17 06:01] LABS: BAND NEUTROPHILS % 2 % (0-10); PLATELET MORPHOLOGY COMMENT NORMAL (NORMAL)
[2019-07-17] MEDS: ZOSYN VIAL 3.375 GRAMS 3.375 G in NS 100 ML IV + SPIKE MINIBAG* 100 ML IV SCH ×2 (09:53→20:41)
[2019-07-17] MEDS: ALLEGRA PO SCH (09:56)
[2019-07-17] MEDS: CORDARONE TAB 200 MG PO SCH (09:58)
[2019-07-17] MEDS: ELIQUIS PO SCH ×2 (09:59→21:13)
[2019-07-17] MEDS: MILK OF MAGNESIA PO SCH ×2 (10:01→21:14)
[2019-07-17] MEDS: HEMOCYTE-PLUS PO SCH (10:01)
[2019-07-17] MEDS: PATIENT'S HOME MEDICATION PO SCH ×2 (10:02→21:14)
[2019-07-17] MEDS: PriLOSEC PO SCH (10:02)
[2019-07-17] MEDS: VANCOMYCIN HCL 1 GM VIAL 1 G in D5W 250 ML IV 250 ML IV SCH ×2 (11:13→20:41)
[2019-07-17] MEDS ORDERED: NS 500 ML IV 500 ML ONE (20:14)
[2019-07-17] MEDS: COLACE CAP 100 MG PO SCH (21:13)
[2019-07-17] MEDS: FLOMAX PO SCH (21:14)
[2019-07-17] MEDS: ZOCOR TAB 20 MG PO SCH (21:15)
[2019-07-17] MEDS: SINGULAIR TAB 10 MG PO SCH (21:15)
--- NOTE | 2019-07-17 21:20 | PCM.PROG ---
Progress Note - Progress Note for Day of Date of Exam: 07/16/19 - Subjective Subjective: IS BEING TREATED FOR LEFT LOWER EXTREMITY CELLULITIS. TODAY, HE IS ALERT AND ORIENTED, LYING IN BED ON MORNING ROUNDS. HE CONTINUES WITH REDNESS, SWELLING, AND PAIN TO LEFT LOWER EXTREMITY. ON EXAMINATION, HEART IS REGULAR IN RATE AND RHYTHM. BILATERAL LUNGS ARE NOTED WITH DIMINISHED LUNG SOUNDS THROUGHOUT. ABDOMEN IS ROUND, SOFT, AND NON-TENDER WITH NORMAL BOWEL SOUNDS NOTED IN ALL QUADRANTS. LEFT LOWER EXTREMITY IS NOTED WITH ERYTHEMA AND EDEMA. HIS VITALS THIS MORNING ARE: 98.2-70-18-97%-131/64. LABS WERE OBTAINED. ABNORMAL LAB VALUES INCLUDE THE FOLLOWING: RBC 3.29, HGB 10.6, HCT 30.8, BUN 29, CREATININE 1.52, GLUCOSE 108, CALCIUM 8.3, AST 45, ALK PHOS 45, CRP 156.20, AL BUMIN 2.6. BLOOD CULTURES ARE NEGATIVE. HE IS CURRENTLY RECEIVING IV ZOSYN AND IV VANCOMYCIN. WE WILL CONTINUE WITH CURRENT PLAN OF CARE TODAY AND START IV DILAUDID 1MG IV Q8H PRN. OTHERWISE, WE PLAN TO FOLLOW UP WITH AM LABS AND CONTINUE TO MONITOR. - Past Medical Family Social History Past Med/Fam/Surg Hx: No changes since H&P Allergies: Allergies No Known Drug Allergies Allergy (Verified 07/13/19 17:55) - Review of Systems ROS: No change since H&P - Vital Signs and I&O's Vital Signs: Temperature 97.7 F Pulse Rate [Left Radial] 71 Pulse Rate 70 Respiratory Rate 20 Blood Pressure [Left Arm] 129/74 Blood Pressure [Right Arm] 118/59 Blood Pressure 103/64 O2 Sat by Pulse Oximetry 95 Intake and Output: Intake & Output 07/15/19 07/16/19 07/17/19 07/18/19 11:59 11:59 11:59 11:59 Intake Total 2320 / 2320 2180 / 2180 1240 / 1240 720 / 720 Output Total 800 / 800 Balance 1520 / 1520 2180 / 2180 1240 / 1240 720 / 720 - Physical Exam Oriented: Normal Eyes: Normal Ear: Normal Nose: Normal Throat: Normal Respiratory: Generalized, Diminished Cardiovascular: Normal, Edema (LEFT LOWER EXTREMITY ). negative: S3, S4, Murmur : Normal Auscultation: Bowel Sounds: Normal Palpation: Normal Tenderness: Normal Skin: Red, Tender, Hot, Wound Musculoskeletal: Left, Leg, Swelling, Tender Psychiatric: Normal Mood Description: Calm Affect: Normal Speech Pattern: Clear, Appropriate - Laboratory and Diagnostics Result Diagrams: 07/17/19 04:55 07/17/19 04:55 Labs: 07/13/19 16:50 Blood Blood Culture - Preliminary 07/13/19 16:50 Blood Blood Culture - Preliminary Laboratory WBC 7.2 X10^3/uL (3.6-10.0) 07/17/19 04:55 RBC 3.25 X10^6/uL (4.7-6.0) L 07/17/19 04:55 Hgb 10.4 g/dL (13.5-18.0) L 07/17/19 04:55 Hct 30.5 % (42.0-54.0) L 07/17/19 04:55 MCV 93.9 fL (80.0-100.0) 07/17/19 04:55 MCH 32.1 pg (27.0-34.0) 07/17/19 04:55 MCHC 34.1 g/dL (33.0-35.0) 07/17/19 04:55 RDW 13.6 % (11.6-16.5) 07/17/19 04:55 Plt Count 213 X10^3/uL (150.0-450.0) 07/17/19 04:55 Plt Count Comment Adequate (ADEQUATE) 07/17/19 04:55 MPV 7.1 fL (7.4-11.0) L 07/17/19 04:55 Neut % (Auto) 65.5 % (42.0-75.0) 07/17/19 04:55 Lymph % (Auto) 19.6 % (21.0-51.0) L 07/17/19 04:55 [place] % (Auto) 12.3 % (0.0-13.0) 07/17/19 04:55 Eos % (Auto) 2.2 % (0.9-2.9) 07/17/19 04:55 Baso % (Auto) 0.4 % (0.2-1.0) 07/17/19 04:55 Neut # (Auto) 4.7 x10^3/uL (2.2-4.8) 07/17/19 04:55 Lymph # (Auto) 1.4 X10^3/uL (1.3-2.9) 07/17/19 04:55 [place] # (Auto) 0.9 x10^3/uL (0.3-0.8) H 07/17/19 04:55 Eos # (Auto) 0.2 x10^3/uL (0.0-0.2) 07/17/19 04:55 Baso # (Auto) 0.0 X10^3/uL (0.0-0.1) 07/17/19 04:55 Absolute Nucleated RBC 0.0 /100WBC 07/17/19 04:55 Total Counted 100 07/17/19 04:55 Neutrophils % (Manual) 66 % (39-76) 07/17/19 04:55 Band Neutrophils % 2 % (0-10) 07/17/19 04:55 Lymphocytes % (Manual) 20 % (13-43) 07/17/19 04:55 Monocytes % (Manual) 11 % (4-9) H 07/17/19 04:55 Eosinophils % (Manual) 1 % (0-6) 07/17/19 04:55 Plt Morphology Comment Normal (NORMAL) 07/17/19 04:55 RBC Morphology Normal (NORMAL) 07/17/19 04:55 ESR 48 MM/HOUR (0-15) H 07/13/19 16:50 Sodium 141 mmol/L (136-145) 07/17/19 04:55 Corrected Sodium TNP 07/17/19 04:55 Potassium 4.4 mmol/L (3.5-5.1) 07/17/19 04:55 Chloride 104 mmol/L (98-107) 07/17/19 04:55 Carbon Dioxide 29.0 mmol/L (21-32) 07/17/19 04:55 BUN 26 mg/dL (7-18) H 07/17/19 04:55 Creatinine 1.46 mg/dL (0.70-1.30) H 07/17/19 04:55 Est GFR (MDRD) Af Amer > 60 (>60) 07/17/19 04:55 Est GFR (MDRD) Non-Af 50 (>60) L 07/17/19 04:55 Glucose 108 mg/dL (65-99) H 07/17/19 04:55 Calcium 7.9 mg/dL (8.5-10.1) L 07/17/19 04:55 Corrected Calcium 9.2 mg/dL (8.5-10.1) 07/17/19 04:55 Total Bilirubin 0.50 mg/dL (0.2-1.0) 07/17/19 04:55 AST 32 Units/L (15-37) 07/17/19 04:55 ALT 26 Units/L (12-78) 07/17/19 04:55 Alkaline Phosphatase 43 Units/L (46-116) L 07/17/19 04:55 C-Reactive Protein 131.90 mg/L (0-3.0) H 07/17/19 04:55 Total Protein 6.3 g/dL (6.4-8.2) L 07/17/19 04:55 Albumin 2.4 g/dL (3.4-5.0) L 07/17/19 04:55 Globulin 3.9 g/dL (2.5-4.5) 07/17/19 04:55 Albumin/Globulin Ratio 0.6 Ratio (1.1-2.1) L 07/17/19 04:55 Vancomycin Trough 14.1 ug/mL (15-20) L 07/15/19 08:48 Random Vancomycin 15.7 ug/mL 07/17/19 10:03 - Plan (1) Cellulitis of left lower leg Status: Acute Plan: IV ZOSYN, IV LEVAQUIN, RESPIRATORY TREATMENTS, SUPPLEMENTAL OXYGEN, CONTINUE TO MONITOR
[2019-07-18 05:14] LABS: BASOPHILS % (AUTO) 0.5 % (0.2-1.0); EOSINOPHILS # (AUTO) 0.2 x10^3/uL (0.0-0.2); EOSINOPHILS % (AUTO) 2.5 % (0.9-2.9); HEMATOCRIT 31.3 % (42.0-54.0); HEMOGLOBIN 10.8 g/dL (13.5-18.0); LYMPHOCYTES # (AUTO) 1.3 X10^3/uL (1.3-2.9); LYMPHOCYTES % (AUTO) 18.9 % (21.0-51.0); MEAN CORPUSCULAR HEMOGLOBIN 31.8 pg (27.0-34.0); MEAN CORPUSCULAR HGB CONC 34.4 g/dL (33.0-35.0); MEAN CORPUSCULAR VOLUME 92.3 fL (80.0-100.0); MEAN PLATELET VOLUME 6.8 fL (7.4-11.0); MONOCYTES # (AUTO) 0.8 x10^3/uL (0.3-0.8); MONOCYTES % (AUTO) 12.2 % (0.0-13.0); NEUTROPHILS # (AUTO) 4.5 x10^3/uL (2.2-4.8); NEUTROPHILS % (AUTO) 65.9 % (42.0-75.0); PLATELET COUNT 238 X10^3/uL (150.0-450.0); RED CELL DISTRIBUTION WIDTH 13.7 % (11.6-16.5); WHITE BLOOD COUNT 6.8 X10^3/uL (3.6-10.0)
[2019-07-18 05:27] LABS: ALANINE AMINOTRANSFERASE 28 Units/L (12-78); ALBUMIN 2.5 g/dL (3.4-5.0); ALKALINE PHOSPHATASE 47 Units/L (46-116); ASPARTATE AMINO TRANSFERASE 28 Units/L (15-37); BLOOD UREA NITROGEN 19 mg/dL (7-18); CALCIUM 8.5 mg/dL (8.5-10.1); CARBON DIOXIDE 30.5 mmol/L (21-32); CHLORIDE 104 mmol/L (98-107); COR CA(FOR HYPOALB) 9.7 mg/dL (8.5-10.1); COR NA(FOR HYPERGLY) 141 mmol/L (136-145); CREATININE 1.22 mg/dL (0.70-1.30); SODIUM 141 mmol/L (136-145); TOTAL PROTEIN 6.5 g/dL (6.4-8.2); eGFR NON BLACK RACES > 60 (>60)
[2019-07-18] MEDS: NORCO 5/325 MG TAB PO PRN ×3 (05:30→23:50)
[2019-07-18] MEDS: PYRIDOSTIGMINE BROMIDE 60 MG PO SCH ×3 (05:50→21:39)
[2019-07-18 06:00] LABS: BAND NEUTROPHILS % 5 % (0-10)
[2019-07-18 06:01] LABS: PLATELET MORPHOLOGY COMMENT NORMAL (NORMAL)
[2019-07-18] MEDS: SYNTHROID 50 mcg TAB PO SCH (06:28)
[2019-07-18] MEDS: MEXILETINE PO SCH ×2 (08:41→16:12)
[2019-07-18] MEDS: ZOSYN VIAL 3.375 GRAMS 3.375 G in NS 100 ML IV + SPIKE MINIBAG* 100 ML IV SCH ×2 (08:42→22:00)
[2019-07-18] MEDS: VANCOMYCIN HCL 1 GM VIAL 1 G in D5W 250 ML IV 250 ML IV SCH ×2 (08:43→21:45)
[2019-07-18] MEDS: PATIENT'S HOME MEDICATION PO SCH ×3 (08:44→21:36)
[2019-07-18] MEDS: ALLEGRA PO SCH (08:44)
[2019-07-18] MEDS: CORDARONE TAB 200 MG PO SCH (08:45)
[2019-07-18] MEDS: ELIQUIS PO SCH ×3 (08:47→21:39)
[2019-07-18] MEDS: PriLOSEC PO SCH (08:47)
[2019-07-18] MEDS: HEMOCYTE-PLUS PO SCH (08:48)
[2019-07-18] MEDS: MILK OF MAGNESIA PO SCH ×2 (08:49→21:40)
--- NOTE | 2019-07-18 16:58 | PCM.PROG ---
Progress Note - Progress Note for Day of Date of Exam: 07/17/19 - Subjective Subjective: IS BEING TREATED FOR LEFT LOWER EXTREMITY CELLULITIS. TODAY, HE IS ALERT AND ORIENTED, LYING IN BED ON MORNING ROUNDS. HE CONTINUES WITH REDNESS, SWELLING, AND PAIN TO LEFT LOWER EXTREMITY. ON EXAMINATION, HEART IS REGULAR IN RATE AND RHYTHM. BILATERAL LUNGS ARE NOTED WITH DIMINISHED LUNG SOUNDS THROUGHOUT. ABDOMEN IS ROUND, SOFT, AND NON-TENDER WITH NORMAL BOWEL SOUNDS NOTED IN ALL QUADRANTS. LEFT LOWER EXTREMITY IS NOTED WITH ERYTHEMA AND EDEMA. HIS VITALS THIS MORNING ARE: 98.2-70-18-97%-131/64. LABS WERE OBTAINED. ABNORMAL LAB VALUES INCLUDE THE FOLLOWING: RBC 3.29, HGB 10.6, HCT 30.8, BUN 29, CREATININE 1.52, GLUCOSE 108, CALCIUM 8.3, AST 45, ALK PHOS 45, CRP 156.20, AL BUMIN 2.6. BLOOD CULTURES ARE NEGATIVE. HE IS CURRENTLY RECEIVING IV ZOSYN AND IV VANCOMYCIN. WE WILL CONTINUE WITH CURRENT PLAN OF CARE TODA. OTHERWISE, WE PLAN TO FOLLOW UP WITH AM LABS AND CONTINUE TO MONITOR. - Past Medical Family Social History Past Med/Fam/Surg Hx: No changes since H&P Allergies: Allergies No Known Drug Allergies Allergy (Verified 07/13/19 17:55) - Review of Systems ROS: No change since H&P - Vital Signs and I&O's Vital Signs: Temperature 97.9 F Pulse Rate [Left Radial] 71 Pulse Rate 70 Respiratory Rate 20 Blood Pressure [Left Arm] 109/56 Blood Pressure [Right Arm] 117/57 Blood Pressure 103/64 O2 Sat by Pulse Oximetry 96 Intake and Output: Intake & Output 07/16/19 07/17/19 07/18/19 07/19/19 11:59 11:59 11:59 11:59 Intake Total 2180 / 2180 1240 / 1240 1400 / 1400 1140 / 1140 Balance 2180 / 2180 1240 / 1240 1400 / 1400 1140 / 1140 - Physical Exam Oriented: Normal Eyes: Normal Ear: Normal Nose: Normal Throat: Normal Respiratory: Generalized, Diminished Cardiovascular: Normal, Edema (LEFT LOWER EXTREMITY ). negative: S3, S4, Murmur : Normal Auscultation: Bowel Sounds: Normal Tenderness: Normal Skin: Red, Tender, Hot, Wound Musculoskeletal: Left, Leg, Swelling, Tender Psychiatric: Normal Mood Description: Calm Affect: Normal Speech Pattern: Clear, Appropriate - Laboratory and Diagnostics Result Diagrams: 07/18/19 04:17 07/18/19 04:17 Labs: 07/13/19 16:50 Blood Blood Culture - Preliminary 07/13/19 16:50 Blood Blood Culture - Preliminary Laboratory WBC 6.8 X10^3/uL (3.6-10.0) 07/18/19 04:17 RBC 3.40 X10^6/uL (4.7-6.0) L 07/18/19 04:17 Hgb 10.8 g/dL (13.5-18.0) L 07/18/19 04:17 Hct 31.3 % (42.0-54.0) L 07/18/19 04:17 MCV 92.3 fL (80.0-100.0) 07/18/19 04:17 MCH 31.8 pg (27.0-34.0) 07/18/19 04:17 MCHC 34.4 g/dL (33.0-35.0) 07/18/19 04:17 RDW 13.7 % (11.6-16.5) 07/18/19 04:17 Plt Count 238 X10^3/uL (150.0-450.0) 07/18/19 04:17 Plt Count Comment Adequate (ADEQUATE) 07/18/19 04:17 MPV 6.8 fL (7.4-11.0) L 07/18/19 04:17 Neut % (Auto) 65.9 % (42.0-75.0) 07/18/19 04:17 Lymph % (Auto) 18.9 % (21.0-51.0) L 07/18/19 04:17 [place] % (Auto) 12.2 % (0.0-13.0) 07/18/19 04:17 Eos % (Auto) 2.5 % (0.9-2.9) 07/18/19 04:17 Baso % (Auto) 0.5 % (0.2-1.0) 07/18/19 04:17 Neut # (Auto) 4.5 x10^3/uL (2.2-4.8) 07/18/19 04:17 Lymph # (Auto) 1.3 X10^3/uL (1.3-2.9) 07/18/19 04:17 [place] # (Auto) 0.8 x10^3/uL (0.3-0.8) 07/18/19 04:17 Eos # (Auto) 0.2 x10^3/uL (0.0-0.2) 07/18/19 04:17 Baso # (Auto) 0.0 X10^3/uL (0.0-0.1) 07/18/19 04:17 Absolute Nucleated RBC 0.0 /100WBC 07/18/19 04:17 Total Counted 100 07/18/19 04:17 Neutrophils % (Manual) 69 % (39-76) 07/18/19 04:17 Band Neutrophils % 5 % (0-10) 07/18/19 04:17 Lymphocytes % (Manual) 14 % (13-43) 07/18/19 04:17 Monocytes % (Manual) 8 % (4-9) 07/18/19 04:17 Eosinophils % (Manual) 4 % (0-6) 07/18/19 04:17 Plt Morphology Comment Normal (NORMAL) 07/18/19 04:17 RBC Morphology Normal (NORMAL) 07/18/19 04:17 ESR 48 MM/HOUR (0-15) H 07/13/19 16:50 Sodium 141 mmol/L (136-145) 07/18/19 04:17 Corrected Sodium 141 mmol/L (136-145) 07/18/19 04:17 Potassium 4.2 mmol/L (3.5-5.1) 07/18/19 04:17 Chloride 104 mmol/L (98-107) 07/18/19 04:17 Carbon Dioxide 30.5 mmol/L (21-32) 07/18/19 04:17 BUN 19 mg/dL (7-18) H 07/18/19 04:17 Creatinine 1.22 mg/dL (0.70-1.30) 07/18/19 04:17 Est GFR (MDRD) Af Amer > 60 (>60) 07/18/19 04:17 Est GFR (MDRD) Non-Af > 60 (>60) 07/18/19 04:17 Glucose 112 mg/dL (65-99) H 07/18/19 04:17 Calcium 8.5 mg/dL (8.5-10.1) 07/18/19 04:17 Corrected Calcium 9.7 mg/dL (8.5-10.1) 07/18/19 04:17 Total Bilirubin 0.50 mg/dL (0.2-1.0) 07/18/19 04:17 AST 28 Units/L (15-37) 07/18/19 04:17 ALT 28 Units/L (12-78) 07/18/19 04:17 Alkaline Phosphatase 47 Units/L (46-116) 07/18/19 04:17 C-Reactive Protein 113.80 mg/L (0-3.0) H 07/18/19 04:17 Total Protein 6.5 g/dL (6.4-8.2) 07/18/19 04:17 Albumin 2.5 g/dL (3.4-5.0) L 07/18/19 04:17 Globulin 4.0 g/dL (2.5-4.5) 07/18/19 04:17 Albumin/Globulin Ratio 0.6 Ratio (1.1-2.1) L 07/18/19 04:17 Vancomycin Trough 14.1 ug/mL (15-20) L 07/15/19 08:48 Random Vancomycin 15.7 ug/mL 07/17/19 10:03 - Plan (1) Cellulitis of left lower leg Status: Acute Plan: IV ZOSYN, IV LEVAQUIN, RESPIRATORY TREATMENTS, SUPPLEMENTAL OXYGEN, CONTINUE TO MONITOR
[2019-07-18] MEDS: FLOMAX PO SCH ×2 (21:32→21:35)
[2019-07-18] MEDS: ZOCOR TAB 20 MG PO SCH (21:34)
[2019-07-18] MEDS: COLACE CAP 100 MG PO SCH (21:40)
[2019-07-18] MEDS: SINGULAIR TAB 10 MG PO SCH (21:40)
[2019-07-19] MEDS: MEXILETINE PO SCH ×3 (00:05→16:00)
[2019-07-19] MEDS: NORCO 5/325 MG TAB PO PRN ×4 (04:50→21:16)
[2019-07-19 05:30] LABS: BASOPHILS # (AUTO) 0.1 X10^3/uL (0.0-0.1); BASOPHILS % (AUTO) 0.7 % (0.2-1.0); EOSINOPHILS # (AUTO) 0.3 x10^3/uL (0.0-0.2); EOSINOPHILS % (AUTO) 3.3 % (0.9-2.9); HEMATOCRIT 31.6 % (42.0-54.0); HEMOGLOBIN 10.6 g/dL (13.5-18.0); LYMPHOCYTES # (AUTO) 1.5 X10^3/uL (1.3-2.9); LYMPHOCYTES % (AUTO) 20.1 % (21.0-51.0); MEAN CORPUSCULAR HEMOGLOBIN 31.3 pg (27.0-34.0); MEAN CORPUSCULAR HGB CONC 33.5 g/dL (33.0-35.0); MEAN CORPUSCULAR VOLUME 93.4 fL (80.0-100.0); MONOCYTES # (AUTO) 0.9 x10^3/uL (0.3-0.8); MONOCYTES % (AUTO) 11.7 % (0.0-13.0); NEUTROPHILS # (AUTO) 4.9 x10^3/uL (2.2-4.8); NEUTROPHILS % (AUTO) 64.2 % (42.0-75.0); PLATELET COUNT 273 X10^3/uL (150.0-450.0); RED BLOOD COUNT 3.38 X10^6/uL (4.7-6.0); RED CELL DISTRIBUTION WIDTH 13.6 % (11.6-16.5); WHITE BLOOD COUNT 7.6 X10^3/uL (3.6-10.0)
[2019-07-19 05:42] LABS: ALANINE AMINOTRANSFERASE 28 Units/L (12-78); ALBUMIN 2.5 g/dL (3.4-5.0); ALKALINE PHOSPHATASE 55 Units/L (46-116); ASPARTATE AMINO TRANSFERASE 23 Units/L (15-37); BLOOD UREA NITROGEN 21 mg/dL (7-18); CALCIUM 8.4 mg/dL (8.5-10.1); CARBON DIOXIDE 30.6 mmol/L (21-32); CHLORIDE 103 mmol/L (98-107); COR CA(FOR HYPOALB) 9.6 mg/dL (8.5-10.1); CREATININE 1.22 mg/dL (0.70-1.30); SODIUM 140 mmol/L (136-145); TOTAL PROTEIN 6.4 g/dL (6.4-8.2); eGFR NON BLACK RACES > 60 (>60)
[2019-07-19 06:04] LABS: BAND NEUTROPHILS % 3 % (0-10)
[2019-07-19 06:05] LABS: PLATELET MORPHOLOGY COMMENT NORMAL (NORMAL)
[2019-07-19] MEDS: PYRIDOSTIGMINE BROMIDE 60 MG PO SCH ×3 (06:29→21:25)
[2019-07-19] MEDS: SYNTHROID 50 mcg TAB PO SCH (06:29)
[2019-07-19] MEDS ORDERED: ALLEGRA ONE (08:08)
[2019-07-19] MEDS: VANCOMYCIN HCL 1 GM VIAL 1 G in D5W 250 ML IV 250 ML IV SCH ×2 (08:16→22:55)
[2019-07-19] MEDS: ZOSYN VIAL 3.375 GRAMS 3.375 G in NS 100 ML IV + SPIKE MINIBAG* 100 ML IV SCH ×2 (08:17→21:00)
[2019-07-19] MEDS: HEMOCYTE-PLUS PO SCH (08:19)
[2019-07-19] MEDS: PriLOSEC PO SCH (08:20)
[2019-07-19] MEDS: ALLEGRA PO SCH (08:20)
[2019-07-19] MEDS: ELIQUIS PO SCH ×2 (08:21→21:22)
[2019-07-19] MEDS: CORDARONE TAB 200 MG PO SCH (08:22)
[2019-07-19] MEDS: MILK OF MAGNESIA PO SCH ×2 (08:23→22:56)
[2019-07-19] MEDS: PATIENT'S HOME MEDICATION PO SCH ×2 (08:31→21:23)
[2019-07-19] MEDS: COZAAR PO SCH (09:41)
[2019-07-19] MEDS: COREG TAB 25 MG PO SCH ×2 (09:41→21:21)
--- NOTE | 2019-07-19 20:45 | PCM.PROG ---
Progress Note - Progress Note for Day of Date of Exam: 07/18/19 - Subjective Subjective: IS BEING TREATED FOR LEFT LOWER EXTREMITY CELLULITIS. TODAY, HE IS ALERT AND ORIENTED, LYING IN BED ON MORNING ROUNDS. HE CONTINUES WITH REDNESS, SWELLING, AND PAIN TO LEFT LOWER EXTREMITY. ON EXAMINATION, HEART IS REGULAR IN RATE AND RHYTHM. BILATERAL LUNGS ARE NOTED WITH DIMINISHED LUNG SOUNDS THROUGHOUT. ABDOMEN IS ROUND, SOFT, AND NON-TENDER WITH NORMAL BOWEL SOUNDS NOTED IN ALL QUADRANTS. LEFT LOWER EXTREMITY IS NOTED WITH ERYTHEMA AND EDEMA. RIGHT LEG IS ALSO NOTED WITH ERYTHEM AND EDEMA TODAY. THERE IS WEEPING NOTED TO THE LEFT LEG. HIS VITALS THIS MORNING ARE: 98.6-70-18-96%-130/61. LABS WERE OBTAINED. ABNORMAL LAB VALUES INCLUDE THE FOLLOWING: RBC 3.40, RBC 10.8, HC T 31.3, BUN 19, GLUCOSE 112, CRP 113.80, ALUBMIN 2.5. BLOOD CULTURES ARE NEGATIVE. HE IS CURRENTLY RECEIVING IV ZOSYN AND IV VANCOMYCIN. WE WILL CONTINUE WITH CURRENT PLAN OF CARE TODAY. OTHERWISE, WE PLAN TO FOLLOW UP WITH AM LABS AND CONTINUE TO MONITOR. - Past Medical Family Social History Past Med/Fam/Surg Hx: No changes since H&P Allergies: Allergies No Known Drug Allergies Allergy (Verified 07/13/19 17:55) - Review of Systems ROS: No change since H&P - Vital Signs and I&O's Vital Signs: Temperature 98.0 F Pulse Rate [Left Radial] 69 Pulse Rate 70 Respiratory Rate 20 Blood Pressure [Left Arm] 109/56 Blood Pressure [Right Arm] 103/58 Blood Pressure 103/64 O2 Sat by Pulse Oximetry 96 Intake and Output: Intake & Output 07/17/19 07/18/19 07/19/19 07/20/19 11:59 11:59 11:59 11:59 Intake Total 1240 / 1240 1400 / 1400 2770 / 2770 600 / 600 Balance 1240 / 1240 1400 / 1400 2770 / 2770 600 / 600 - Physical Exam Oriented: Normal Eyes: Normal Ear: Normal Nose: Normal Throat: Normal Respiratory: Generalized, Diminished Cardiovascular: Normal, Edema (LEFT LOWER EXTREMITY ). negative: S3, S4, Murmur : Normal Auscultation: Bowel Sounds: Normal Tenderness: Normal Skin: Red, Tender, Hot, Wound Musculoskeletal: Left, Leg, Swelling, Tender Psychiatric: Normal Mood Description: Calm Affect: Normal Speech Pattern: Clear, Appropriate - Laboratory and Diagnostics Result Diagrams: 07/19/19 04:39 07/19/19 04:39 Labs: 07/13/19 16:50 Blood Blood Culture - Final 07/13/19 16:50 Blood Blood Culture - Final Laboratory WBC 7.6 X10^3/uL (3.6-10.0) 07/19/19 04:39 RBC 3.38 X10^6/uL (4.7-6.0) L 07/19/19 04:39 Hgb 10.6 g/dL (13.5-18.0) L 07/19/19 04:39 Hct 31.6 % (42.0-54.0) L 07/19/19 04:39 MCV 93.4 fL (80.0-100.0) 07/19/19 04:39 MCH 31.3 pg (27.0-34.0) 07/19/19 04:39 MCHC 33.5 g/dL (33.0-35.0) 07/19/19 04:39 RDW 13.6 % (11.6-16.5) 07/19/19 04:39 Plt Count 273 X10^3/uL (150.0-450.0) 07/19/19 04:39 Plt Count Comment Adequate (ADEQUATE) 07/19/19 04:39 MPV 7.0 fL (7.4-11.0) L 07/19/19 04:39 Neut % (Auto) 64.2 % (42.0-75.0) 07/19/19 04:39 Lymph % (Auto) 20.1 % (21.0-51.0) L 07/19/19 04:39 [place] % (Auto) 11.7 % (0.0-13.0) 07/19/19 04:39 Eos % (Auto) 3.3 % (0.9-2.9) H 07/19/19 04:39 Baso % (Auto) 0.7 % (0.2-1.0) 07/19/19 04:39 Neut # (Auto) 4.9 x10^3/uL (2.2-4.8) H 07/19/19 04:39 Lymph # (Auto) 1.5 X10^3/uL (1.3-2.9) 07/19/19 04:39 [place] # (Auto) 0.9 x10^3/uL (0.3-0.8) H 07/19/19 04:39 Eos # (Auto) 0.3 x10^3/uL (0.0-0.2) H 07/19/19 04:39 Baso # (Auto) 0.1 X10^3/uL (0.0-0.1) 07/19/19 04:39 Absolute Nucleated RBC 0.1 /100WBC 07/19/19 04:39 Total Counted 100 07/19/19 04:39 Neutrophils % (Manual) 59 % (39-76) 07/19/19 04:39 Band Neutrophils % 3 % (0-10) 07/19/19 04:39 Lymphocytes % (Manual) 22 % (13-43) 07/19/19 04:39 Monocytes % (Manual) 12 % (4-9) H 07/19/19 04:39 Eosinophils % (Manual) 4 % (0-6) 07/19/19 04:39 Plt Morphology Comment Normal (NORMAL) 07/19/19 04:39 RBC Morphology Normal (NORMAL) 07/19/19 04:39 ESR 48 MM/HOUR (0-15) H 07/13/19 16:50 Sodium 140 mmol/L (136-145) 07/19/19 04:39 Corrected Sodium TNP 07/19/19 04:39 Potassium 4.4 mmol/L (3.5-5.1) 07/19/19 04:39 Chloride 103 mmol/L (98-107) 07/19/19 04:39 Carbon Dioxide 30.6 mmol/L (21-32) 07/19/19 04:39 BUN 21 mg/dL (7-18) H 07/19/19 04:39 Creatinine 1.22 mg/dL (0.70-1.30) 07/19/19 04:39 Est GFR (MDRD) Af Amer > 60 (>60) 07/19/19 04:39 Est GFR (MDRD) Non-Af > 60 (>60) 07/19/19 04:39 Glucose 109 mg/dL (65-99) H 07/19/19 04:39 Calcium 8.4 mg/dL (8.5-10.1) L 07/19/19 04:39 Corrected Calcium 9.6 mg/dL (8.5-10.1) 07/19/19 04:39 Total Bilirubin 0.40 mg/dL (0.2-1.0) 07/19/19 04:39 AST 23 Units/L (15-37) 07/19/19 04:39 ALT 28 Units/L (12-78) 07/19/19 04:39 Alkaline Phosphatase 55 Units/L (46-116) 07/19/19 04:39 C-Reactive Protein 90.00 mg/L (0-3.0) H 07/19/19 04:39 Total Protein 6.4 g/dL (6.4-8.2) 07/19/19 04:39 Albumin 2.5 g/dL (3.4-5.0) L 07/19/19 04:39 Globulin 3.9 g/dL (2.5-4.5) 07/19/19 04:39 Albumin/Globulin Ratio 0.6 Ratio (1.1-2.1) L 07/19/19 04:39 Vancomycin Trough 14.1 ug/mL (15-20) L 07/15/19 08:48 Random Vancomycin 15.7 ug/mL 07/17/19 10:03 - Plan (1) Cellulitis of left lower leg Status: Acute Plan: IV ZOSYN, IV LEVAQUIN, RESPIRATORY TREATMENTS, SUPPLEMENTAL OXYGEN, CONTINUE TO MONITOR
[2019-07-19] MEDS ORDERED: ZANAFLEX PO SCH (21:00)
[2019-07-19 21:16] LABS: VANCOMYCIN,TROUGH 15.6 ug/mL (15-20)
[2019-07-19] MEDS: FLOMAX PO SCH (21:18)
[2019-07-19] MEDS: ZOCOR TAB 20 MG PO SCH (21:19)
[2019-07-19 21:36] LABS: CREATININE 1.52 mg/dL (0.70-1.30)
--- NOTE | 2019-07-19 22:36 | PCM.PROG ---
Progress Note - Progress Note for Day of Date of Exam: 07/19/19 - Subjective Subjective: IS BEING TREATED FOR LOWER EXTREMITY CELLULITIS. TODAY, HE IS ALERT AND ORIENTED, SITTING UP IN CHAIR ON MORNING ROUNDS. HE CONTINUES WITH REDNESS AND SWELLING TO BILATERAL LOWER EXTREMIES. HE REPORTS BACK PAIN THAT IS MORE SEVERE AT NIGHT WHEN LYING DOWN. ON EXAMINATION, HEART IS REGULAR IN RATE AND RHYTHM. BILATERAL LUNGS ARE NOTED WITH DIMINISHED LUNG SOUNDS THROUGHOUT. ABDOMEN IS ROUND, SOFT, AND NON-TENDER WITH NORMAL BOWEL SOUNDS NOTED IN ALL QUADRANTS. BILATERAL LOWER EXTREMITIES ARE NOTED WITH ERYTHEMA AND EDEMA, LEFT LEG MORE SEVERE THAN THE RIGHT. THERE IS NO WEEPING NOTED TODAY. HIS VITALS THIS MORNING ARE: 97.9-72-20-97%-146/69. LABS WERE OBTAINED. ABNORMAL LAB VALUES INCLUDE THE FOLLOWING: RBC 3.38, HGB 10.6, HCT 31.6, BUN 21, GLUCOSE 109, CALCIUM 8.4, CRP 90.0, ALBUMIN 2.5. BLOOD CULTURES ARE NEGATIVE. HE IS CURRENTLY RECEIVING IV ZOSYN AND IV VANCOMYCIN. WE WILL CONTINUE WITH CURRENT PLAN OF CARE TODAY AND START ZANAFLEX 4MG PO HS. OTHERWISE, WE PLAN TO FOLLOW UP WITH AM LABS AND CONTINUE TO MONITOR. - Past Medical Family Social History Past Med/Fam/Surg Hx: No changes since H&P Allergies: Allergies No Known Drug Allergies Allergy (Verified 07/13/19 17:55) - Review of Systems ROS: No change since H&P - Vital Signs and I&O's Vital Signs: Temperature 98.0 F Pulse Rate [Left Radial] 69 Pulse Rate 70 Respiratory Rate 20 Blood Pressure [Left Arm] 109/56 Blood Pressure [Right Arm] 103/58 Blood Pressure 103/64 O2 Sat by Pulse Oximetry 96 Intake and Output: Intake & Output 07/17/19 07/18/19 07/19/19 07/20/19 11:59 11:59 11:59 11:59 Intake Total 1240 / 1240 1400 / 1400 2770 / 2770 600 / 600 Balance 1240 / 1240 1400 / 1400 2770 / 2770 600 / 600 - Physical Exam Oriented: Normal Eyes: Normal Ear: Normal Nose: Normal Throat: Normal Respiratory: Generalized, Diminished Cardiovascular: Normal, Edema (LEFT LOWER EXTREMITY ). negative: S3, S4, Murmur : Normal Auscultation: Bowel Sounds: Normal Tenderness: Normal Skin: Red, Tender, Hot, Wound Musculoskeletal: Left, Leg, Swelling, Tender Psychiatric: Normal Mood Description: Calm Affect: Normal Speech Pattern: Clear, Appropriate - Laboratory and Diagnostics Result Diagrams: 07/19/19 04:39 07/19/19 20:40 Labs: 07/13/19 16:50 Blood Blood Culture - Final 07/13/19 16:50 Blood Blood Culture - Final Laboratory WBC 7.6 X10^3/uL (3.6-10.0) 07/19/19 04:39 RBC 3.38 X10^6/uL (4.7-6.0) L 07/19/19 04:39 Hgb 10.6 g/dL (13.5-18.0) L 07/19/19 04:39 Hct 31.6 % (42.0-54.0) L 07/19/19 04:39 MCV 93.4 fL (80.0-100.0) 07/19/19 04:39 MCH 31.3 pg (27.0-34.0) 07/19/19 04:39 MCHC 33.5 g/dL (33.0-35.0) 07/19/19 04:39 RDW 13.6 % (11.6-16.5) 07/19/19 04:39 Plt Count 273 X10^3/uL (150.0-450.0) 07/19/19 04:39 Plt Count Comment Adequate (ADEQUATE) 07/19/19 04:39 MPV 7.0 fL (7.4-11.0) L 07/19/19 04:39 Neut % (Auto) 64.2 % (42.0-75.0) 07/19/19 04:39 Lymph % (Auto) 20.1 % (21.0-51.0) L 07/19/19 04:39 [place] % (Auto) 11.7 % (0.0-13.0) 07/19/19 04:39 Eos % (Auto) 3.3 % (0.9-2.9) H 07/19/19 04:39 Baso % (Auto) 0.7 % (0.2-1.0) 07/19/19 04:39 Neut # (Auto) 4.9 x10^3/uL (2.2-4.8) H 07/19/19 04:39 Lymph # (Auto) 1.5 X10^3/uL (1.3-2.9) 07/19/19 04:39 [place] # (Auto) 0.9 x10^3/uL (0.3-0.8) H 07/19/19 04:39 Eos # (Auto) 0.3 x10^3/uL (0.0-0.2) H 07/19/19 04:39 Baso # (Auto) 0.1 X10^3/uL (0.0-0.1) 07/19/19 04:39 Absolute Nucleated RBC 0.1 /100WBC 07/19/19 04:39 Total Counted 100 07/19/19 04:39 Neutrophils % (Manual) 59 % (39-76) 07/19/19 04:39 Band Neutrophils % 3 % (0-10) 07/19/19 04:39 Lymphocytes % (Manual) 22 % (13-43) 07/19/19 04:39 Monocytes % (Manual) 12 % (4-9) H 07/19/19 04:39 Eosinophils % (Manual) 4 % (0-6) 07/19/19 04:39 Plt Morphology Comment Normal (NORMAL) 07/19/19 04:39 RBC Morphology Normal (NORMAL) 07/19/19 04:39 ESR 48 MM/HOUR (0-15) H 07/13/19 16:50 Sodium 140 mmol/L (136-145) 07/19/19 04:39 Corrected Sodium TNP 07/19/19 04:39 Potassium 4.4 mmol/L (3.5-5.1) 07/19/19 04:39 Chloride 103 mmol/L (98-107) 07/19/19 04:39 Carbon Dioxide 30.6 mmol/L (21-32) 07/19/19 04:39 BUN 21 mg/dL (7-18) H 07/19/19 04:39 Creatinine 1.52 mg/dL (0.70-1.30) H 07/19/19 20:40 Est GFR (MDRD) Af Amer > 60 (>60) 07/19/19 04:39 Est GFR (MDRD) Non-Af > 60 (>60) 07/19/19 04:39 Glucose 109 mg/dL (65-99) H 07/19/19 04:39 Calcium 8.4 mg/dL (8.5-10.1) L 07/19/19 04:39 Corrected Calcium 9.6 mg/dL (8.5-10.1) 07/19/19 04:39 Total Bilirubin 0.40 mg/dL (0.2-1.0) 07/19/19 04:39 AST 23 Units/L (15-37) 07/19/19 04:39 ALT 28 Units/L (12-78) 07/19/19 04:39 Alkaline Phosphatase 55 Units/L (46-116) 07/19/19 04:39 C-Reactive Protein 90.00 mg/L (0-3.0) H 07/19/19 04:39 Total Protein 6.4 g/dL (6.4-8.2) 07/19/19 04:39 Albumin 2.5 g/dL (3.4-5.0) L 07/19/19 04:39 Globulin 3.9 g/dL (2.5-4.5) 07/19/19 04:39 Albumin/Globulin Ratio 0.6 Ratio (1.1-2.1) L 07/19/19 04:39 Vancomycin Trough 15.6 ug/mL (15-20) 07/19/19 20:40 Random Vancomycin 15.7 ug/mL 07/17/19 10:03 - Plan (1) Cellulitis of left lower leg Status: Acute Plan: IV ZOSYN, IV LEVAQUIN, RESPIRATORY TREATMENTS, SUPPLEMENTAL OXYGEN, CONTINUE TO MONITOR
[2019-07-19] MEDS: COLACE CAP 100 MG PO SCH (22:56)
[2019-07-19] MEDS: SINGULAIR TAB 10 MG PO SCH (22:56)
[2019-07-20] MEDS: MEXILETINE PO SCH ×3 (00:48→16:30)
[2019-07-20] MEDS: NORCO 5/325 MG TAB PO PRN ×3 (02:45→18:29)
[2019-07-20 05:16] LABS: BASOPHILS % (AUTO) 0.8 % (0.2-1.0); EOSINOPHILS # (AUTO) 0.2 x10^3/uL (0.0-0.2); EOSINOPHILS % (AUTO) 3.9 % (0.9-2.9); HEMATOCRIT 30.2 % (42.0-54.0); HEMOGLOBIN 10.2 g/dL (13.5-18.0); LYMPHOCYTES # (AUTO) 1.3 X10^3/uL (1.3-2.9); LYMPHOCYTES % (AUTO) 20.8 % (21.0-51.0); MEAN CORPUSCULAR HEMOGLOBIN 31.7 pg (27.0-34.0); MEAN CORPUSCULAR HGB CONC 33.8 g/dL (33.0-35.0); MEAN CORPUSCULAR VOLUME 93.8 fL (80.0-100.0); MEAN PLATELET VOLUME 6.8 fL (7.4-11.0); MONOCYTES # (AUTO) 0.8 x10^3/uL (0.3-0.8); MONOCYTES % (AUTO) 12.3 % (0.0-13.0); NEUTROPHILS % (AUTO) 62.2 % (42.0-75.0); PLATELET COUNT 286 X10^3/uL (150.0-450.0); RED BLOOD COUNT 3.22 X10^6/uL (4.7-6.0); RED CELL DISTRIBUTION WIDTH 13.6 % (11.6-16.5); WHITE BLOOD COUNT 6.4 X10^3/uL (3.6-10.0)
[2019-07-20 05:31] LABS: ALANINE AMINOTRANSFERASE 25 Units/L (12-78); ALBUMIN 2.3 g/dL (3.4-5.0); ALKALINE PHOSPHATASE 51 Units/L (46-116); ASPARTATE AMINO TRANSFERASE 21 Units/L (15-37); BLOOD UREA NITROGEN 21 mg/dL (7-18); CALCIUM 8.5 mg/dL (8.5-10.1); CARBON DIOXIDE 30.7 mmol/L (21-32); CHLORIDE 105 mmol/L (98-107); COR CA(FOR HYPOALB) 9.9 mg/dL (8.5-10.1); COR NA(FOR HYPERGLY) 142 mmol/L (136-145); CREATININE 1.35 mg/dL (0.70-1.30); SODIUM 141 mmol/L (136-145); TOTAL PROTEIN 6.1 g/dL (6.4-8.2); eGFR NON BLACK RACES 55 (>60)
[2019-07-20 05:57] LABS: BAND NEUTROPHILS % 2 % (0-10); PLATELET MORPHOLOGY COMMENT NORMAL (NORMAL)
[2019-07-20] MEDS: PYRIDOSTIGMINE BROMIDE 60 MG PO SCH ×3 (06:05→21:07)
[2019-07-20] MEDS: SYNTHROID 50 mcg TAB PO SCH (06:06)
[2019-07-20] MEDS ORDERED: ALLEGRA ONE (09:06)
[2019-07-20] MEDS: VANCOMYCIN HCL 1 GM VIAL 1 G in D5W 250 ML IV 250 ML IV SCH ×2 (09:27→20:24)
[2019-07-20] MEDS: ZOSYN VIAL 3.375 GRAMS 3.375 G in NS 100 ML IV + SPIKE MINIBAG* 100 ML IV SCH ×2 (09:28→20:25)
[2019-07-20] MEDS: ALLEGRA PO SCH (09:33)
[2019-07-20] MEDS: COREG TAB 25 MG PO SCH (09:34)
[2019-07-20] MEDS: CORDARONE TAB 200 MG PO SCH (09:34)
[2019-07-20] MEDS: ELIQUIS PO SCH (09:35)
[2019-07-20] MEDS: COZAAR PO SCH (09:35)
[2019-07-20] MEDS: HEMOCYTE-PLUS PO SCH (09:35)
[2019-07-20] MEDS: MILK OF MAGNESIA PO SCH ×2 (09:36→20:22)
[2019-07-20] MEDS: PATIENT'S HOME MEDICATION PO SCH ×4 (09:36→20:36)
[2019-07-20] MEDS: PriLOSEC PO SCH (09:36)
[2019-07-20] MEDS: COLACE CAP 100 MG PO SCH (20:22)
[2019-07-20] MEDS ORDERED: PATIENT'S HOME MEDICATION PO SCH ×4 (21:00)
--- NOTE | 2019-07-20 21:25 | PCM.PROG ---
Progress Note - Progress Note for Day of Date of Exam: 07/20/19 - Subjective Subjective: IS BEING TREATED FOR LOWER EXTREMITY CELLULITIS. TODAY, HE IS ALERT AND ORIENTED, SITTING UP IN CHAIR ON MORNING ROUNDS. HE CONTINUES WITH REDNESS AND SWELLING TO BILATERAL LOWER EXTREMIES, BUT REPORTS IMPROVEMENT SINCE YESTERDAY. ON EXAMINATION, HEART IS REGULAR IN RATE AND RHYTHM. BILATERAL LUNGS ARE NOTED WITH DIMINISHED LUNG SOUNDS THROUGHOUT. ABDOMEN IS ROUND, SOFT, AND NON-TENDER WITH NORMAL BOWEL SOUNDS NOTED IN ALL QUADRANTS. BILATERAL LOWER EXTREMITIES ARE NOTED WITH ERYTHEMA AND NON-PITTING EDEMA. REDNESS HAS DECREASED. HIS VITALS THIS MORNING ARE: 98.0-70-18-96%-130/66. LABS WERE OBTAINED. ABNORMAL LAB VALUES INCLUDE THE FOLLOWING: RBC 3.22, HGB 10.2, HCT 30.2, BUN 21, CREATININE 1.35, TOTAL PROTEIN 6.1, ALBUMIN 2.3. BLOOD CULTURES ARE NEGATIVE. HE IS CURRENTLY RECEIVING IV ZOSYN AND IV VANCOMYCIN. WE WILL CONTINUE WITH CURRENT PLAN OF CARE TODAY. OTHERWISE, WE PLAN TO FOLLOW UP WITH AM LABS AND CONTINUE TO MONITOR. - Past Medical Family Social History Past Med/Fam/Surg Hx: No changes since H&P Allergies: Allergies No Known Drug Allergies Allergy (Verified 07/13/19 17:55) - Review of Systems ROS: No change since H&P - Vital Signs and I&O's Vital Signs: Temperature 97.8 F Pulse Rate [Right Radial] 70 Pulse Rate [Left Radial] 70 Pulse Rate 70 Respiratory Rate 20 Blood Pressure [Left Arm] 109/56 Blood Pressure [Right Arm] 123/59 Blood Pressure 103/64 O2 Sat by Pulse Oximetry 95 Intake and Output: Intake & Output 07/18/19 07/19/19 07/20/19 07/21/19 11:59 11:59 11:59 11:59 Intake Total 1400 / 1400 2770 / 2770 1300 / 1300 1070 / 1070 Balance 1400 / 1400 2770 / 2770 1300 / 1300 1070 / 1070 - Physical Exam Oriented: Normal Eyes: Normal Ear: Normal Nose: Normal Throat: Normal Respiratory: Generalized, Diminished Cardiovascular: Normal, Edema (LEFT LOWER EXTREMITY ). negative: S3, S4, Murmur : Normal Auscultation: Bowel Sounds: Normal Tenderness: Normal Skin: Red, Tender, Hot, Wound Musculoskeletal: Left, Leg, Swelling, Tender Psychiatric: Normal Mood Description: Calm Affect: Normal Speech Pattern: Clear, Appropriate - Laboratory and Diagnostics Result Diagrams: 07/20/19 04:34 07/20/19 04:34 Labs: 07/13/19 16:50 Blood Blood Culture - Final 07/13/19 16:50 Blood Blood Culture - Final Laboratory WBC 6.4 X10^3/uL (3.6-10.0) 07/20/19 04:34 RBC 3.22 X10^6/uL (4.7-6.0) L 07/20/19 04:34 Hgb 10.2 g/dL (13.5-18.0) L 07/20/19 04:34 Hct 30.2 % (42.0-54.0) L 07/20/19 04:34 MCV 93.8 fL (80.0-100.0) 07/20/19 04:34 MCH 31.7 pg (27.0-34.0) 07/20/19 04:34 MCHC 33.8 g/dL (33.0-35.0) 07/20/19 04:34 RDW 13.6 % (11.6-16.5) 07/20/19 04:34 Plt Count 286 X10^3/uL (150.0-450.0) 07/20/19 04:34 Plt Count Comment Adequate (ADEQUATE) 07/20/19 04:34 MPV 6.8 fL (7.4-11.0) L 07/20/19 04:34 Neut % (Auto) 62.2 % (42.0-75.0) 07/20/19 04:34 Lymph % (Auto) 20.8 % (21.0-51.0) L 07/20/19 04:34 [place] % (Auto) 12.3 % (0.0-13.0) 07/20/19 04:34 Eos % (Auto) 3.9 % (0.9-2.9) H 07/20/19 04:34 Baso % (Auto) 0.8 % (0.2-1.0) 07/20/19 04:34 Neut # (Auto) 4.0 x10^3/uL (2.2-4.8) 07/20/19 04:34 Lymph # (Auto) 1.3 X10^3/uL (1.3-2.9) 07/20/19 04:34 [place] # (Auto) 0.8 x10^3/uL (0.3-0.8) 07/20/19 04:34 Eos # (Auto) 0.2 x10^3/uL (0.0-0.2) 07/20/19 04:34 Baso # (Auto) 0.0 X10^3/uL (0.0-0.1) 07/20/19 04:34 Absolute Nucleated RBC 0.0 /100WBC 07/20/19 04:34 Total Counted 100 07/20/19 04:34 Neutrophils % (Manual) 61 % (39-76) 07/20/19 04:34 Band Neutrophils % 2 % (0-10) 07/20/19 04:34 Lymphocytes % (Manual) 24 % (13-43) 07/20/19 04:34 Monocytes % (Manual) 11 % (4-9) H 07/20/19 04:34 Eosinophils % (Manual) 2 % (0-6) 07/20/19 04:34 Plt Morphology Comment Normal (NORMAL) 07/20/19 04:34 RBC Morphology Normal (NORMAL) 07/20/19 04:34 ESR 48 MM/HOUR (0-15) H 07/13/19 16:50 Sodium 141 mmol/L (136-145) 07/20/19 04:34 Corrected Sodium 142 mmol/L (136-145) 07/20/19 04:34 Potassium 4.3 mmol/L (3.5-5.1) 07/20/19 04:34 Chloride 105 mmol/L (98-107) 07/20/19 04:34 Carbon Dioxide 30.7 mmol/L (21-32) 07/20/19 04:34 BUN 21 mg/dL (7-18) H 07/20/19 04:34 Creatinine 1.35 mg/dL (0.70-1.30) H 07/20/19 04:34 Est GFR (MDRD) Af Amer > 60 (>60) 07/20/19 04:34 Est GFR (MDRD) Non-Af 55 (>60) L 07/20/19 04:34 Glucose 135 mg/dL (65-99) H 07/20/19 04:34 Calcium 8.5 mg/dL (8.5-10.1) 07/20/19 04:34 Corrected Calcium 9.9 mg/dL (8.5-10.1) 07/20/19 04:34 Total Bilirubin 0.30 mg/dL (0.2-1.0) 07/20/19 04:34 AST 21 Units/L (15-37) 07/20/19 04:34 ALT 25 Units/L (12-78) 07/20/19 04:34 Alkaline Phosphatase 51 Units/L (46-116) 07/20/19 04:34 C-Reactive Protein 90.00 mg/L (0-3.0) H 07/19/19 04:39 Total Protein 6.1 g/dL (6.4-8.2) L 07/20/19 04:34 Albumin 2.3 g/dL (3.4-5.0) L 07/20/19 04:34 Globulin 3.8 g/dL (2.5-4.5) 07/20/19 04:34 Albumin/Globulin Ratio 0.6 Ratio (1.1-2.1) L 07/20/19 04:34 Vancomycin Trough 15.6 ug/mL (15-20) 07/19/19 20:40 Random Vancomycin 15.7 ug/mL 07/17/19 10:03 - Plan (1) Cellulitis of left lower leg Status: Acute Plan: IV ZOSYN, IV LEVAQUIN, RESPIRATORY TREATMENTS, SUPPLEMENTAL OXYGEN, CONTINUE TO MONITOR
[2019-07-21] MEDS: ULTRAM PO PRN (00:10)
[2019-07-21] MEDS: MEXILETINE PO SCH ×2 (00:14→08:54)
[2019-07-21 05:40] LABS: ALANINE AMINOTRANSFERASE 26 Units/L (12-78); ALBUMIN 2.6 g/dL (3.4-5.0); ALKALINE PHOSPHATASE 56 Units/L (46-116); ASPARTATE AMINO TRANSFERASE 19 Units/L (15-37); BLOOD UREA NITROGEN 20 mg/dL (7-18); CALCIUM 8.8 mg/dL (8.5-10.1); CARBON DIOXIDE 30.4 mmol/L (21-32); CHLORIDE 105 mmol/L (98-107); COR CA(FOR HYPOALB) 9.9 mg/dL (8.5-10.1); CREATININE 1.55 mg/dL (0.70-1.30); SODIUM 142 mmol/L (136-145); TOTAL PROTEIN 6.5 g/dL (6.4-8.2); eGFR NON BLACK RACES 47 (>60)
[2019-07-21] MEDS: PYRIDOSTIGMINE BROMIDE 60 MG PO SCH ×2 (06:03→14:00)
[2019-07-21 06:08] LABS: BASOPHILS % (AUTO) 0.6 % (0.2-1.0); EOSINOPHILS # (AUTO) 0.2 x10^3/uL (0.0-0.2); EOSINOPHILS % (AUTO) 3.1 % (0.9-2.9); HEMATOCRIT 30.8 % (42.0-54.0); HEMOGLOBIN 10.6 g/dL (13.5-18.0); LYMPHOCYTES # (AUTO) 1.1 X10^3/uL (1.3-2.9); LYMPHOCYTES % (AUTO) 17.3 % (21.0-51.0); MEAN CORPUSCULAR HGB CONC 34.6 g/dL (33.0-35.0); MEAN CORPUSCULAR VOLUME 92.5 fL (80.0-100.0); MEAN PLATELET VOLUME 6.3 fL (7.4-11.0); MONOCYTES # (AUTO) 0.7 x10^3/uL (0.3-0.8); MONOCYTES % (AUTO) 10.9 % (0.0-13.0); NEUTROPHILS # (AUTO) 4.5 x10^3/uL (2.2-4.8); NEUTROPHILS % (AUTO) 68.1 % (42.0-75.0); PLATELET COUNT 305 X10^3/uL (150.0-450.0); RED BLOOD COUNT 3.33 X10^6/uL (4.7-6.0); RED CELL DISTRIBUTION WIDTH 14.1 % (11.6-16.5); WHITE BLOOD COUNT 6.6 X10^3/uL (3.6-10.0)
[2019-07-21 06:55] LABS: BAND NEUTROPHILS % 3 % (0-10); PLATELET MORPHOLOGY COMMENT NORMAL (NORMAL)
[2019-07-21] MEDS ORDERED: PATIENT'S HOME MEDICATION PO SCH ×4 (07:00→09:00)
[2019-07-21] MEDS: NORCO 5/325 MG TAB PO PRN ×2 (08:49→13:16)
[2019-07-21] MEDS: HEMOCYTE-PLUS PO SCH (08:50)
[2019-07-21] MEDS: ZOSYN VIAL 3.375 GRAMS 3.375 G in NS 100 ML IV + SPIKE MINIBAG* 100 ML IV SCH (08:50)
[2019-07-21] MEDS: VANCOMYCIN HCL 1 GM VIAL 1 G in D5W 250 ML IV 250 ML IV SCH (08:51)
[2019-07-21] MEDS: ALLEGRA PO SCH (08:55)
[2019-07-21] MEDS: PATIENT'S HOME MEDICATION PO SCH ×3 (08:56→08:59)
[2019-07-21] MEDS: MILK OF MAGNESIA PO SCH (09:01)
[2019-07-21 13:15] VITALS: BP 138/68
== END 2019-07-21 15:00 | disposition home or self-care (01) | DRG 603 ==
LOC: ICU → MED/SURG 07-15 17:20
PROVIDERS: ADMIT Internal Medicine; ATTEND Internal Medicine
DX: R19.7 Diarrhea, unspecified; E11.65 Type 2 diabetes mellitus with hyperglycemia; I10 Essential (primary) hypertension; L03.116 Cellulitis of left lower limb; R26.89 Other abnormalities of gait and mobility; M47.27 Other spondylosis with radiculopathy, lumbosacral region; R06.02 Shortness of breath; Z95.0 Presence of cardiac pacemaker; R11.2 Nausea with vomiting, unspecified; R50.9 Fever, unspecified
CPT/HCPCS: 36415; 71020; 71046; 80053; 80202; 82565; 85025; 85652; 86140; 87040; 93306; 93971; 97110; 97162; A4222; G0378; J2405; J2543; J3370; J7040; J7050; J7060